=== PATIENT | female | born 1995 | race Caucasian/White ===

== ENCOUNTER 2016-09-30 18:38 | Emergency (ER) | payer MEDICAID, OTHER ==
[~2016-09-30] VITALS: Ht 154.9 cm; Wt 48.0 kg
[~2016-09-30 18:38] MED LIST: ALBU8I INH; WAL-10TA2 PO
[2016-09-30 18:39] VITALS: BP 110/55; PULSE 113; RESP 26; TEMP 98.4; O2SAT 94
[2016-09-30] MEDS ORDERED: LORA10TA PO (18:57)
[2016-09-30] MEDS ORDERED: VENTAER INH (18:57)
[2016-09-30] MEDS ORDERED: predniSONE 20 MG TAB PO ONE (19:15)
--- NOTE | 2016-09-30 19:19 | PD ---
HPI Chief Complaint: Respiratory Symptoms Time Seen by Provider: 19:10 Travel History International Travel<30 days: No Contact w/Intl Traveler<30days: No Traveled to known affect area: No History of Present Illness HPI This Is 20-year-old female with history of asthma who presents for evaluation of asthma exacerbation. Symptoms started a few hours prior to arrival. She reports wheezing and cough. She reports that she was just sitting on her couch when symptoms started. Denies recent travel, fevers or chills. No sick contacts. She does not use tobacco products. She does use an albuterol inhaler. Symptoms are partially alleviated with inhaler, aggravated by coughing. No other complaints. PFSH Past Medical History ADHD: No Asthma: Yes Autoimmune Disease: No Anxiety: No Depression: Yes Cancer: No Cardiovascular Problems: No Diabetes: No Diminished Hearing: No Endocrine: No Gastrointestinal Disorders: Yes Genitourinary: No Headaches: No Immune Disorder: No Musculoskeletal: No Neurologic: No Psychiatric: Yes (Depression) Reproductive: No Respiratory: Yes (ASTHMA) Integumentary: Yes (Eczema) Immunizations Current: Yes Migraines: No Seizures: No Thyroid Disease: No Ulcer: No ?: Not LMP: 09/10/16 : 0 Para: 0 Past Surgical History Appendectomy: No Section: No Cholecystectomy: No Other Surgery: No Social History Alcohol Use: No Tobacco Use: No Substance Use: No Allergies-Medications (Allergen,Severity, Reaction): Coded Allergies: Dust (Verified Allergy, Severe, ASTHMA ATTACK, 09/30/16) Grass (Verified Allergy, Severe, ASTHMA ATTACK, 09/30/16) Seafood (Verified Allergy, Severe, ASTHMA ATTACK, 09/30/16) Shellfish (Verified Allergy, Severe, Anaphylaxis, 09/30/16) Soy Protein (Verified Allergy, Severe, FACIAL AND LIP SWELLING, DIFFICULTY SWALLOWING, 09/30/16) Reported Meds & Prescriptions Reported Meds & Active Scripts Active Prednisone 20 Mg Tab 20 Mg PO BID 5 Days Reported Loratadine 10 Mg Tab 10 Mg PO DAILY Ventolin Hfa 18 GM Inh (Albuterol Sulfate) 90 Mcg/Act Aer 2 Puff INH Q4H PRN Review of Systems Except as stated in HPI: all other systems reviewed are Neg Physical Exam Narrative GENERAL: Well-developed well-nourished female in no acute distress. She is coughing during the examination. SKIN: Warm and dry. HEAD: Atraumatic. Normocephalic. EYES: Pupils equal and round. No scleral icterus. No injection or drainage. ENT: No nasal bleeding or discharge. Mucous membranes pink and moist. NECK: Trachea midline. No JVD. CARDIOVASCULAR: Regular rate and rhythm. No murmur appreciated. RESPIRATORY: No accessory muscle use. Inspiratory and expiratory wheezing noted bilaterally. No tachypnea. No crackles. GASTROINTESTINAL: Abdomen soft, non-tender, nondistended. Hepatic and splenic margins not palpable. MUSCULOSKELETAL: No obvious deformities. No edema. NEUROLOGICAL: Awake and alert. No obvious cranial nerve deficits. Motor grossly within normal limits. Normal speech. Data Data Last Documented VS Vital Signs Date Time Temp Pulse Resp B/P Pulse Ox O2 Delivery O2 Flow Rate FiO2 09/30/16 18:39 98.4 113 26 110/55 94 Orders Prednisone (Deltasone) (09/30/16 19:15) Albuterol-Ipratropium Neb (Duoneb Neb) (09/30/16 19:15) [facility] Medical Decision Making Medical Screen Exam Complete: Yes Emergency Medical Condition: Yes Medical Record Reviewed: Yes Differential Diagnosis Asthma exacerbation, bronchitis, pneumonia, reactive airway disease, bronchiolitis Narrative Course 20-year-old female presents for evaluation of wheezing and cough for 1 day with a history of asthma. Examination and history are consistent with asthma exacerbation. The patient is being given DuoNeb therapy and prednisone. She will be monitored closely. Upon reexamination the patient feels significantly improved. She will be discharged with a five-day course of prednisone. Diagnosis Primary Impression: Asthma with acute exacerbation Qualified Code: J45.901 - Asthma with acute exacerbation, unspecified asthma severity Additional Instructions: Medication as prescribed. Albuterol inhaler as needed for wheezing. Follow-up with primary care physician and return for any acutely new or worsening symptoms. Med/Other Pt SpecificInfo: Prescription(s) given Scripts Prednisone 20 Mg Tab20 Mg PO BID 5 Days Ref 0 Prov:Fernanda Marion MD 09/30/16 Disposition: 01 DISCHARGE HOME Condition: Stable Ray Chaney Sep 30, 2016 19:19
[2016-09-30] MEDS: RESP: ALBUTEROL 2.5 MG/IPRATROPIUM 0.5 MG NEB (SCH) INH ×3 (19:25→19:48)
[2016-09-30] MEDS ORDERED: PRED20 PO (20:01)
[2016-10-01] MEDS ORDERED: ALBU.5I NEB (12:55)
[2016-10-13] MEDS ORDERED: LORA10TA PO (17:57)
== END 2016-09-30 20:31 | disposition home or self-care (01) ==
LOC: NETRI 18:38
DX: J45.901 Unspecified asthma with (acute) exacerbation (principal)
CPT/HCPCS: 94640; 94664; 99283; J7512

== ENCOUNTER 2016-10-01 12:44 | Emergency (ER) | payer MEDICAID, OTHER ==
[~2016-10-01] VITALS: Ht 154.9 cm; Wt 47.0 kg
[~2016-10-01 12:44] MED LIST changes: -ALBU8I INH; +LORA10TA PO; +PRED20 PO; +VENTAER INH; -WAL-10TA2 PO
[2016-10-01 12:47] VITALS: BP 114/58; PULSE 136; RESP 26; O2SAT 95
[2016-10-01 12:50] VITALS: BP 114/58; PULSE 137; RESP 23; O2SAT 93
[2016-10-01] MEDS ORDERED: ALBU.5I NEB (12:55)
--- NOTE | 2016-10-01 13:06 | PD ---
HPI . Wheezing Chief Complaint: Respiratory Distress Time Seen by Provider: 12:57 Travel History International Travel<30 days: No Contact w/Intl Traveler<30days: No Traveled to known affect area: No History of Present Illness HPI Patient presents complaining with wheezing. She was seen here yesterday for same. She was treated with a nebulizer treatment and discharged with an MDI and a prescription for prednisone, 20 mg twice a day. She states that she has been using the medications as directed. Despite that, she is still wheezing today. She reports cough. She denies known fever. She has not noted any exacerbating or relieving factors. She states that her symptoms are severe. PFSH Past Medical History ADHD: No Asthma: Yes Autoimmune Disease: No Weight (Kg): 3 Anxiety: No Depression: Yes Cancer: No Cardiovascular Problems: No Diabetes: No Diminished Hearing: No Endocrine: No Gastrointestinal Disorders: Yes Genitourinary: No Headaches: No Immune Disorder: No Musculoskeletal: No Neurologic: No Psychiatric: Yes (Depression) Reproductive: No Respiratory: Yes (ASTHMA) Integumentary: Yes (Eczema) Immunizations Current: Yes Migraines: No Seizures: No Thyroid Disease: No Ulcer: No Influenza Vaccination: No ?: Not LMP: 09/10/2016 : 0 Para: 0 Past Surgical History Surgical History: No Previous Surgery Appendectomy: No Section: No Cholecystectomy: No Other Surgery: No Social History Alcohol Use: No Tobacco Use: No Substance Use: No Allergies-Medications (Allergen,Severity, Reaction): Coded Allergies: Dust (Verified Allergy, Severe, ASTHMA ATTACK, 10/01/16) Grass (Verified Allergy, Severe, ASTHMA ATTACK, 10/01/16) Seafood (Verified Allergy, Severe, ASTHMA ATTACK, 10/01/16) Shellfish (Verified Allergy, Severe, Anaphylaxis, 10/01/16) Soy Protein (Verified Allergy, Severe, FACIAL AND LIP SWELLING, DIFFICULTY SWALLOWING, 10/01/16) Reported Meds & Prescriptions Reported Meds & Active Scripts Active Prednisone 20 Mg Tab 20 Mg PO BID 5 Days Reported Albuterol Neb (Albuterol Sulfate) 2.5 Mg/0.5 Ml Neb 2.5 Mg NEB Q4-6H PRN Note: The Albuterol Sulfate Inhalation Solution is concentrated and must be diluted. Read complete instructions carefully before using. Loratadine 10 Mg Tab 10 Mg PO DAILY Ventolin Hfa 18 GM Inh (Albuterol Sulfate) 90 Mcg/Act Aer 2 Puff INH Q4H PRN Review of Systems Except as stated in HPI: all other systems reviewed are Neg General / Constitutional: No: Fever, Chills Respiratory: Positive: Cough, Shortness of Breath, Wheezing Physical Exam Narrative GENERAL: Awake and alert. SKIN: Warm and dry. HEAD: Atraumatic. Normocephalic. EYES: Pupils equal and round. Extraocular movements intact. ENT: No nasal bleeding or discharge. Mucous membranes pink and moist. NECK: Trachea midline. Neck supple. CARDIOVASCULAR: Regular rate and rhythm. Heart sounds normal. RESPIRATORY: No accessory muscle use. Diffuse inspiratory next 3 wheezing. GASTROINTESTINAL: Abdomen soft, non-tender, nondistended. MUSCULOSKELETAL: No obvious deformities. No edema. NEUROLOGICAL: Awake and alert. No obvious cranial nerve deficits. Motor grossly within normal limits. Normal speech. PSYCHIATRIC: Appropriate mood and affect; insight and judgment normal. Data Data Last Documented VS Vital Signs Date Time Temp Pulse Resp B/P Pulse Ox O2 Delivery O2 Flow Rate FiO2 10/01/16 12:50 137 23 114/58 93 Nasal Cannula 2 Orders Iv Access Insert/Monitor (10/01/16 13:01) Methylprednisolone So Succ Inj (Solumedr (10/01/16 13:15) Albuterol-Ipratropium Neb (Duoneb Neb) (10/01/16 13:15) Sodium Chloride 0.9% Flush (Ns Flush) (10/01/16 13:15) MDM Medical Decision Making Medical Screen Exam Complete: Yes Emergency Medical Condition: Yes Medical Record Reviewed: Yes (patient was seen here yesterday for wheezing. She was discharged with an albuterol MDI and a prescription for prednisone 20 mg twice a day.) Differential Diagnosis Differential diagnosis of dyspnea includes but is not limited to congestive heart failure, pneumonia, wheezing, pneumothorax, pulmonary embolism Narrative Course Patient presents for treatment of wheezing. She is currently receiving stacked nebs. I have ordered Solu-Medrol, 125 mg IV. Lungs are completely clear following treatments. She is now resting comfortably. Per dad reports that she did not get her MDI filled yet. They will get it this afternoon. Diagnosis Primary Impression: Asthma with acute exacerbation Qualified Code: J45.21 - Mild intermittent asthma with acute exacerbation Patient Instructions: Asthma (DC), General Instructions Disposition: DISCHARGE HOME Condition: Stable Abida Zambrano MD Oct 01, 2016 13:06
[2016-10-01] MEDS ORDERED: SODIUM CHLORIDE 0.9% FLUSH 10 ML FLUSH IVF PRN (13:15)
[2016-10-01] MEDS ORDERED: methylPREDNISolone SOD SUCC 125 MG/2 ML VIAL IVP ONE (13:15)
[2016-10-01] MEDS: RESP: ALBUTEROL 2.5 MG/IPRATROPIUM 0.5 MG NEB (SCH) INH ×2 (13:17→13:18)
[2016-10-01 14:35] VITALS: BP 103/51; PULSE 128; RESP 22; O2SAT 97
[2016-10-13] MEDS ORDERED: LORA10TA PO (17:57)
== END 2016-10-01 14:48 | disposition home or self-care (01) ==
LOC: NEPC 12:44
DX: J45.21 Mild intermittent asthma with (acute) exacerbation (principal)
CPT/HCPCS: 94640; 94664; 96374; 99283; J2930

== ENCOUNTER 2016-10-01 18:30 | Observation (INO) | payer MEDICAID, OTHER ==
[~2016-10-01] VITALS: Ht 157.5 cm; Wt 51.0 kg
[~2016-10-01 18:30] MED LIST changes: +ALBU.5I NEB
[2016-10-01 18:35] VITALS: BP 115/53; PULSE 128; RESP 20; TEMP 97.8; O2SAT 95
[2016-10-01] MEDS ORDERED: SODIUM CHLORIDE 0.9% FLUSH 10 ML FLUSH IVF PRN (19:00)
[2016-10-01 19:18] VITALS: RESP 20; O2SAT 99
[2016-10-01 19:19] VITALS: BP 114/59; PULSE 138; RESP 20; O2SAT 99
[2016-10-01] MEDS: RESP: ALBUTEROL 2.5 MG/IPRATROPIUM 0.5 MG NEB (SCH) INH (19:29)
[2016-10-01] MEDS ORDERED: SODIUM CHLOR 0.9% 1000 ML INJ 1,000 ML IV SCH (19:52)
--- NOTE | 2016-10-01 19:54 | RADRPT ---
EXAM DATE/TIME: 10/01/2016 19:18 [place] COMPARISON: No previous studies available for comparison. INDICATIONS : Shortness of breath, wheezing. MEDICAL HISTORY : Asthma. SURGICAL HISTORY : None. ENCOUNTER: Initial ACUITY: 3 days PAIN SCORE: 6/10 LOCATION: chest midline. FINDINGS: A single view of the chest demonstrates the lungs to be symmetrically aerated without evidence of mas s, infiltrate or effusion. The cardiomediastinal contours are unremarkable. Osseous structures are intact. CONCLUSION: 1. No acute findings. Benigno Castro MD on October 01, 2016 at 19:51 Board Certified Radiologist. This report was verified electronically.
[2016-10-01] MEDS ORDERED: OSELTAMIVIR PHOSPHATE 75 MG CAP PO ONE (20:00)
--- NOTE | 2016-10-01 20:02 | PD ---
HPI Chief Complaint: Respiratory Symptoms Time Seen by Provider: 19:57 Travel History International Travel<30 days: No Contact w/Intl Traveler<30days: No Traveled to known affect area: No History of Present Illness HPI 20-year-old female that presents to the ED for evaluation of asthma exacerbation. Patient was actually seen here at this morning by Dr. Zambrano and at the time had breathing treatments and improvement of symptoms. Patient was also seen the day before and had improvement of symptoms with breathing treatments but she continues to not improve. I spoke with the family who state that patient had another episode just before coming to the ED today minutes ago and she started having very bad shortness of breath and she was given treatments at home with minimal improvement so they brought her here back. Patient denies any other medical problems. She does have a history of asthma with intubation in the past. She does have multiple allergies to allergens. Denies any chest pain. Per patient her symptoms or shortness of breath. Most of the history is obtained from family as patient is somewhat hard to get history from secondary to her shortness of breath. She denies any fevers chills or sweats. No recent sick contacts. No fevers chills or sweats. PFSH Past Medical History ADHD: No Asthma: Yes Autoimmune Disease: No Anxiety: Yes Depression: Yes Cardiovascular Problems: No Diabetes: No Diminished Hearing: No Endocrine: No Gastrointestinal Disorders: Yes Genitourinary: No Headaches: No Immune Disorder: No Musculoskeletal: No Neurologic: No Psychiatric: Yes (Depression) Reproductive: No Respiratory: Yes (ASTHMA) Integumentary: Yes (Eczema) Immunizations Current: Yes Migraines: No Seizures: No Thyroid Disease: No Ulcer: No Tetanus Vaccination: < 5 Years Influenza Vaccination: No ?: Unknown LMP: PT STATES DOES NOT REMEMBER : 0 Para: 0 Past Surgical History Appendectomy: No Cholecystectomy: No Social History Alcohol Use: No Tobacco Use: No Substance Use: No Allergies-Medications (Allergen,Severity, Reaction): Coded Allergies: Dust (Verified Allergy, Severe, ASTHMA ATTACK, 10/01/16) Grass (Verified Allergy, Severe, ASTHMA ATTACK, 10/01/16) Seafood (Verified Allergy, Severe, ASTHMA ATTACK, 10/01/16) Shellfish (Verified Allergy, Severe, Anaphylaxis, 10/01/16) Soy Protein (Verified Allergy, Severe, FACIAL AND LIP SWELLING, DIFFICULTY SWALLOWING, 10/01/16) Reported Meds & Prescriptions Reported Meds & Active Scripts Active Prednisone 20 Mg Tab 20 Mg PO BID 5 Days Reported Albuterol Neb (Albuterol Sulfate) 2.5 Mg/0.5 Ml Neb 2.5 Mg NEB Q4-6H PRN Note: The Albuterol Sulfate Inhalation Solution is concentrated and must be diluted. Read complete instructions carefully before using. Loratadine 10 Mg Tab 10 Mg PO DAILY Ventolin Hfa 18 GM Inh (Albuterol Sulfate) 90 Mcg/Act Aer 2 Puff INH Q4H PRN Review of Systems Except as stated in HPI: all other systems reviewed are Neg Physical Exam Narrative GENERAL: Well-nourished, well-developed patient in no apparent distress. SKIN: Warm and dry. HEAD: Atraumatic. Normocephalic. EYES: Pupils equal and round reactive to light and accommodation. No scleral icterus. No injection or drainage. ENT: No nasal bleeding or discharge. Mucous membranes pink and moist. TMs are clear with no sign of infection or perforation. No mastoid tenderness. Ear canals are intact bilaterally. No lymphadenopathy. Nostril mucosa is red and moist with clear mucus noted. No sinus tenderness to palpation noted. Tonsils are not enlarged or swollen. No ulvua Deviation. Tongue is midline. NECK: Trachea midline. No JVD. No meningeal signs noted CARDIOVASCULAR: Regular rate and rhythm. RESPIRATORY: No accessory muscle use. Wheezings heard in all lung taylor. Breath sounds equal bilaterally. GASTROINTESTINAL: Abdomen soft, non-tender, nondistended. Hepatic and splenic margins not palpable. MUSCULOSKELETAL: Extremities without clubbing, cyanosis, or edema. No obvious deformities. NEUROLOGICAL: Awake and alert. No obvious cranial nerve deficits. Motor grossly within normal limits. Five out of 5 muscle strength in the arms and legs. Normal speech. PSYCHIATRIC: Appropriate mood and affect; insight and judgment normal. Data Data Last Documented VS Vital Signs Date Time Temp Pulse Resp B/P Pulse Ox O2 Delivery O2 Flow Rate FiO2 10/01/16 19:19 138 20 114/59 99 Nasal Cannula 1 10/01/16 18:35 97.8 Orders Chest, Single Ap (10/01/16 18:58) Ecg Monitoring (10/01/16 18:58) Iv Access Insert/Monitor (10/01/16 18:58) Oximetry (10/01/16 18:58) Oxygen Administration (10/01/16 18:58) Albuterol-Ipratropium Neb (Duoneb Neb) (10/01/16 19:00) Sodium Chloride 0.9% Flush (Ns Flush) (10/01/16 19:00) Influenzae A/B Antigen (10/01/16 19:00) Oseltamivir (Tamiflu) (10/01/16 20:00) Sodium Chlor 0.9% 1000 Ml Inj (Ns 1000 M (10/01/16 19:52) Magnesium Sulfate 1 Gm Premix (Magnesium (10/01/16 20:00) Electrocardiogram (10/01/16 ) MDM Medical Decision Making Medical Screen Exam Complete: Yes Emergency Medical Condition: Yes Medical Record Reviewed: Yes Interpretation(s) flu positive for A CXR negative Differential Diagnosis Asthma exacerbation versus asthma versus influenza versus pneumonia Narrative Course 20-year-old female that presents to the ED for evaluation of shortness of breath. Patient was properly examined and was found to have signs and symptoms very consistent what appears to be asthma exacerbation. This is the patient's third evaluation for this in less than 48 hours. Patient still very symptomatic having a lot of wheezing on exam. Patient has had no x-rays or any other work done. At this time I recommend chest x-ray as well as influenza test to make sure patient doesn't have an infectious etiology causing the severe attacks. Chest x-ray and influenza test became positive for flu no pneumonia. Patient was given 3 duo nebs with some improvement of the wheezing. I spoke with my attending Dr. Villanueva who recommends starting her on magnesium as well. At this time I will start patient on Tamiflu. Because this is the patient's third time coming to the ED for the same complaint to do recommend admission for observation and better asthma control. This was discussed in my attending Dr. Villanueva who agrees with plan. HEPAS was paged. Spoke with Dr. Reddy who agrees to admission. Diagnosis Primary Impression: Asthma with acute exacerbation Qualified Code: J45.41 - Moderate persistent asthma with acute exacerbation Additional Impression: Influenza A Admitting Information Admitting Physician Requests: Observation Jude Herman Oct 01, 2016 20:02
[2016-10-01] MEDS ORDERED: SODIUM CHLOR 0.9% 1000 ML INJ 1,000 ML IV ONE (20:15)
[2016-10-01] MEDS ORDERED: RESP: ALBUTEROL 1.25 MG/3 ML NEB (PRN) NEB (20:15)
[2016-10-01 20:41] VITALS: BP 102/54; PULSE 143; RESP 18; TEMP 100.2; TEMP 98.4; O2SAT 99
[2016-10-01] MEDS: MAGNESIUM SULFATE 1 GM PREMIX 100 ML IV SCH ×2 (20:44→21:31)
[2016-10-01] MEDS ORDERED: ACETAMINOPHEN 325 MG TAB PO ONE (22:00)
[2016-10-01 22:11] VITALS: BP 103/69; TEMP 100.2
--- NOTE | 2016-10-01 22:17 | HHI.HP ---
[facility] Primary Care Physician Eleazar Santamaria MD Admission Diagnosis asthma with acute exacerbation, failed outpatient treatment, flu Diagnoses: (1) Influenza A Diagnosis: Principal Chief Complaint: sob Travel History International Travel<30 Days: No Contact w/Intl Traveler <30 Da: No Traveled to Known Affected Are: No History of Present Illness patient is a 20 y/o female with history of asthma who presented to ER with sob. this is her third presentation to ER over the past couple of days. she says that she started to have sob a few days ago which gradually got worse. she has dry cough and doesn't report any fevers at home. she was seen in ER yesterday and was discharged with prednisone. she came [place] to ER earlier today, received a dose of IV steroid and was discharged home again. she says that her sob didn' t improve which made her to come to ER again. at the time of my evaluation she was in no acute distress although still with some chest congestion. she says that she works in a [employer] center. Review of Systems Constitutional: DENIES: Fever, Weight loss, Chills, Night Sweats Eyes: DENIES: Blurred vision, Diplopia, Vision loss, Double Vision Ears, nose, mouth, throat: DENIES: Tinnitus, Vertigo, Throat pain, Epistaxis Respiratory: COMPLAINS OF: Cough, Shortness of breath, DENIES: Apneas, Snoring , Wheezing, Hemoptysis, Sputum production Cardiovascular: DENIES: Chest pain, Palpitations, Syncope, Dyspnea on Exertion , PND, Lower Extremity Edema, Orthopnea, Claudication Gastrointestinal: DENIES: Abdominal pain, Black stools, Bloody stools, Constipation, Diarrhea, Nausea, Vomiting, Difficulty Swallowing, Anorexia Genitourinary: DENIES: Urinary frequency, Urgency, Hematuria, Dysuria Musculoskeletal: DENIES: Joint pain, Muscle aches, Stiffness, Joint Swelling Integumentary: DENIES: Rash Neurologic: DENIES: Abnormal gait, Headache, Localized weakness, Paresthesias, Seizures, Speech Problems, Tremor, Poor Balance Psychiatric: DENIES: Anxiety, Confusion, Mood changes, Depression, Hallucinations, Agitation, Suicidal Ideation, Homicidal Ideation, Delusions Past Family Social History Past Medical History asthma Past Surgical History none Reported Medications Prednisone 20 Mg Tab 20 Mg PO BID 5 Days Albuterol Neb (Albuterol Sulfate) 2.5 Mg/0.5 Ml Neb 2.5 Mg NEB Q4-6H PRN Note: The Albuterol Sulfate Inhalation Solution is concentrated and must be diluted. Read complete instructions carefully before using. Loratadine 10 Mg Tab 10 Mg PO DAILY Ventolin Hfa 18 GM Inh (Albuterol Sulfate) 90 Mcg/Act Aer 2 Puff INH Q4H PRN Allergies: Coded Allergies: Dust (Verified Allergy, Severe, ASTHMA ATTACK, 10/01/16) Grass (Verified Allergy, Severe, ASTHMA ATTACK, 10/01/16) Seafood (Verified Allergy, Severe, ASTHMA ATTACK, 10/01/16) Shellfish (Verified Allergy, Severe, Anaphylaxis, 10/01/16) Soy Protein (Verified Allergy, Severe, FACIAL AND LIP SWELLING, DIFFICULTY SWALLOWING, 10/01/16) Active Ordered Medications Current Medications Albuterol/ Ipratropium (Duoneb Neb) 1 ampule Q15M INH Last administered on 19:29; Start 10/01/16 at 19:00; Stop 10/01/16 at 19:31; Status DC Sodium Chloride (NS Flush) 2 ml UNSCH PRN IVF FLUSH AFTER USING IV ACCESS; Start 10/01/16 at 19:00 Oseltamivir Phosphate 75 mg 75 mg ONCE ONCE PO Last administered on 10/01/16 22:01; Start 10/01/16 at 20:00; Stop 10/01/16 at 20:01; Status DC Sodium Chloride 1,000 ml @ 1,000 mls/hr Q1H IV Last administered on 10/01/16 20:44; Start 10/01/16 at 19:52; Stop 10/01/16 at 20:51; Status DC Magnesium Sulfate/ Dextrose (Magnesium Sulfate 1 Gm Premix) 100 ml @ 100 mls/ hr Q1H IV Last administered on 10/01/16 21:31; Start 10/01/16 at 20:00; Stop 10/01/16 at 21:59; Status DC Albuterol Sulfate (Albuterol Neb) 2.5 mg Q4HR NEB NEB ; Start 10/02/16 at 00:00 Albuterol Sulfate (Albuterol Neb) 1.25 mg Q2HR NEB PRN NEB SHORTNESS OF BREATH ; Start 10/01/16 at 20:15 Oseltamivir Phosphate 75 mg 75 mg BID PO ; Start 10/02/16 at 09:00 Sodium Chloride (NS 1000 ml Inj) 1,000 ml @ 100 mls/hr Q10H ONCE IV Last administered on 10/01/16 21:32; Start 10/01/16 at 20:15; Stop 10/02/16 at 06:14 Loratadine (Claritin) 10 mg DAILY PO ; Start 10/02/16 at 09:00 Acetaminophen (Tylenol) 650 mg ONCE ONCE PO Last administered on 10/01/16 22: 01; Start 10/01/16 at 22:00; Stop 10/01/16 at 22:01; Status DC Social History no smoking or drinking. Physical Exam Vital Signs Vital Signs Date Time Temp Pulse Resp B/P Pulse Ox O2 Delivery O2 Flow Rate FiO2 10/01/16 20:41 100.2 143 18 102/54 99 Nasal Cannula 1 10/01/16 19:19 138 20 114/59 99 Nasal Cannula 1 10/01/16 19:18 99 Nasal Cannula 1 10/01/16 19:18 20 99 Nasal Cannula 1 10/01/16 18:35 118 20 96 Room Air 10/01/16 18:35 97.8 128 20 115/53 95 Physical Exam GENERAL: This is a well-nourished, well-developed patient, in no apparent distress. SKIN: No rashes, ecchymoses or lesions. Cool and dry. HEAD: Atraumatic. Normocephalic. No temporal or scalp tenderness. EYES: Pupils equal round and reactive. Extraocular motions intact. No scleral icterus. No injection or drainage. ENT: Nose without bleeding, purulent drainage or septal hematoma. Throat without erythema, tonsillar hypertrophy or exudate. Uvula midline. Airway patent. NECK: Trachea midline. No JVD or lymphadenopathy. Supple, nontender, no meningeal signs. CARDIOVASCULAR: Regular rate and rhythm without murmurs, gallops, or rubs. RESPIRATORY: bilateral wheezing GASTROINTESTINAL: Abdomen soft, non-tender, nondistended. No hepato-splenomegaly , or palpable masses. No guarding. MUSCULOSKELETAL: Extremities without clubbing, cyanosis, or edema. No joint tenderness, effusion, or edema noted. No calf tenderness. Negative Homans sign bilaterally. NEUROLOGICAL: Awake and alert. Cranial nerves II through XII intact. Motor and sensory grossly within normal limits. Five out of 5 muscle strength in all muscle groups. Normal speech. Laboratory Date/Time Procedure Status Source Growth 10/01/16 19:10 Influenza Types A,B Antigen (LEO) - Final Complete Nasal Washing Positive For Flu A Antigen Imaging Last Impressions Chest X-Ray 10/01/16 8155 Signed Impressions: Service Date/Time: Saturday, October 01, 2016 19:18 - CONCLUSION: 1. No acute findings. Benigno Castro MD EKG; sinus tachycardia Assessment and Plan Assessment and Plan A/P - flu with asthma exacerbation continue with neb treatment- received a dose of Solumedrol earlier today- will continue with IV steroids- started on Tamiflu keep on oxygen to keep O2 sat > 90%. will monitor the temps. Discussed Condition With ER and the patient. Jesus Guerrero MD Oct 01, 2016 22:17
[2016-10-01 22:24] VITALS: BP 101/58; PULSE 131; RESP 19; RESP 20; TEMP 99.5; O2SAT 98
[2016-10-01] MEDS ORDERED: ACETAMINOPHEN 325 MG TAB PO PRN (22:30)
[2016-10-01] MEDS: methylPREDNISolone SOD SUCC 40 MG/1 ML VIAL IV PUSH SCH (23:28)
[2016-10-02] VITALS (7 sets, daily range): BP systolic 100–116; BP diastolic 50–63; PULSE 74–110; RESP 17–19; TEMP 98.1–99.1; O2SAT 96–100
[2016-10-02] MEDS: RESP: ALBUTEROL 2.5 MG/3 ML NEB (SCH) NEB ×2 (02:47)
[2016-10-02] MEDS: methylPREDNISolone SOD SUCC 40 MG/1 ML VIAL IV PUSH SCH ×2 (05:22→21:05)
[2016-10-02 08:02] LABS: BASOPHIL % 0.1 % (0.0-2.0); HEMATOCRIT 33.3 % (35.0-46.0); HEMO FLAGS DIFF FINAL; LYMPH % 6.1 % (9.0-44.0); LYMPHOCYTE # 0.5 TH/MM3 (1.0-4.8); MEAN CELL VOLUME 81.5 FL (80.0-100.0); MEAN CORPUSCULAR HGB CONC 33.1 % (32.0-36.0); MONO % 3.1 % (0.0-8.0); NEUT % 90.7 % (16.0-70.0); PLATELET COUNT 241 TH/MM3 (150-450); RED BLOOD COUNT 4.08 MIL/MM3 (4.00-5.30); RED CELL DISTRIBUTION WIDTH 15.3 % (11.6-17.2); WHITE BLOOD COUNT 7.7 TH/MM3 (4.0-11.0)
[2016-10-02 08:18] LABS: BICARBONATE 20.3 MEQ/L (21.0-32.0); POTASSIUM 4.2 MEQ/L (3.5-5.1)
[2016-10-02] MEDS: OSELTAMIVIR PHOSPHATE 75 MG CAP PO SCH ×2 (08:43→21:05)
[2016-10-02] MEDS: LORATADINE 10 MG TAB PO SCH (08:43)
[2016-10-02] MEDS: RESP: IPRATROPIUM 0.5 MG/2.5 ML NEB NEB SCH ×3 (08:57→20:05)
[2016-10-02] MEDS ORDERED: ACETAMINOPHEN 325 MG TAB PO PRN (11:45)
[2016-10-02] MEDS ORDERED: ONDANSETRON HCL 4 MG/2 ML VIAL IVP PRN (11:45)
[2016-10-02] MEDS ORDERED: SODIUM CHLORIDE 0.9% FLUSH 10 ML FLUSH IV FLUSH PRN (11:45)
[2016-10-02] MEDS ORDERED: NALOXONE HCL 0.4 MG/ML AMP IV PRN (11:45)
[2016-10-02] MEDS ORDERED: MAGNESIUM HYDROXIDE SUSP 30 ML CUP PO PRN (11:45)
--- NOTE | 2016-10-02 12:22 | HHI.PR ---
Subjective Remarks Follow-up for asthma exacerbation and influenza. The patient states that she normally has a few asthma attacks per month, but they are mild and usually relieved after one puff of albuterol MDI. Yesterday however she had multiple asthma attacks. She states that for the first episode she came to the ED, was given oral steroids and breathing treatment and felt much better. She had another attack later in the day and came to the ED and received IV steroids. She began having worsening wheezing, cough, and body aches, so she went back to the ED for a third time and was diagnosed with influenza. She denies any fever or chills. Her breathing is much better today. Objective Vitals Vital Signs Date Time Temp Pulse Resp B/P Pulse Ox O2 Delivery O2 Flow Rate FiO2 10/02/16 08:57 98 Nasal Cannula 2.00 10/02/16 08:32 99.1 86 17 105/56 98 10/02/16 04:26 98.6 110 19 100/55 100 10/01/16 22:24 99.5 131 19 101/58 98 10/01/16 22:11 100.2 126 18 103/69 99 Nasal Cannula 1 10/01/16 20:41 100.2 143 18 102/54 99 Nasal Cannula 1 10/01/16 19:19 138 20 114/59 99 Nasal Cannula 1 10/01/16 19:18 99 Nasal Cannula 1 10/01/16 19:18 20 99 Nasal Cannula 1 10/01/16 18:35 118 20 96 Room Air 10/01/16 18:35 97.8 128 20 115/53 95 Result Diagram: 10/02/16 0750 10/02/16 0750 Imaging Last Impressions Chest X-Ray 10/01/16 3778 Signed Impressions: Service Date/Time: Saturday, October 01, 2016 19:18 - CONCLUSION: 1. No acute findings. Benigno Castro MD Objective Remarks GENERAL: Well-developed well-nourished. In no acute distress. SKIN: Warm and dry. No lesions noted. HEENT: Normocephalic. Pupils equal and round. Mucous membranes pink and moist. CARDIOVASCULAR: Regular rate and rhythm. No murmur appreciated. RESPIRATORY: No accessory muscle use. Clear to auscultation. Breath sounds equal bilaterally. No wheezing. GASTROINTESTINAL: Abdomen soft, non-tender, nondistended. Bowel sounds x4. MUSCULOSKELETAL: No obvious deformities. No clubbing or cyanosis. No edema. NEUROLOGICAL: Awake and alert. No focal neurological deficits. Moves upper and lower extremities spontaneously. Normal speech. PSYCHIATRIC: Appropriate mood and affect; insight and judgment normal. A/P Problem List: (1) Influenza A ICD Code: J10.1 Status: Acute Assessment and Plan 20-year-old female with a past medical history of asthma who presented with shortness of breath Asthma exacerbation Influenza infection Reviewed: Chest x-ray with no acute findings. No leukocytosis. Tmax 100.2. -IV steroids, taper -Tamiflu -Scheduled and as needed nebs -IVF 1 bag DVT prophylaxis: SCDs Written by Jignesh Dorsey, acting as scribe for Dr. Tam on 10/02/16 at 12:22. All or portions of this note were transcribed by scrALONDRA Paredes. I, Dr. Artis Tam personally performed the history, physical exam, and medical decision making; and confirmed the accuracy of the information in the transcribed note. Authenticated by Dr. Artis Tam on 10/02/16 at 23:40. Discharge Planning Likely discharge tomorrow if patient remains stable. Jignesh Dorsey Oct 02, 2016 12:22 Samia Tam DO Oct 02, 2016 23:40
--- NOTE | 2016-10-02 12:55 | EKG ---
Date Performed: 10/01/2016 Time Performed: 20:39:29 PTAGE: 20 years EKG: SINUS TACHYCARDIA WITH SHORT MO INTERVAL POSSIBLE RIGHT VENTRICULAR CONDUCTION DELAY NONSPE CIFIC ST & T-WAVE ABNORMALITY ABNORMAL RHYTHM ECG PREVIOUS TRACING : 12/10/2012 10.29 Compared to the previous tracing sinus tachycardia is new DOCTOR: Flaco Stein Interpretating Date/Time 10/02/2016 12:53:58
[2016-10-02] MEDS: SODIUM CHLORIDE 0.9% FLUSH 10 ML FLUSH IV FLUSH SCH (21:05)
[2016-10-03 00:19] VITALS: BP 112/62; PULSE 75; RESP 19; TEMP 98.1; O2SAT 97
[2016-10-03] MEDS: RESP: IPRATROPIUM 0.5 MG/2.5 ML NEB NEB SCH ×2 (03:05→08:27)
[2016-10-03 04:35] VITALS: BP 110/62; PULSE 79; RESP 18; TEMP 98.2; O2SAT 95
[2016-10-03 08:00] VITALS: BP 95/52; PULSE 65; RESP 16; TEMP 98.5; O2SAT 100
[2016-10-03] MEDS ORDERED: OSEL75 PO (08:00)
--- NOTE | 2016-10-03 08:16 | HHI.PR ---
Subjective Remarks Follow up for influenza and asthma exacerbation. The patient reports feeling better today. O2 sat stable on room air. No fevers or chills. She states she uses her inhaler maybe 3x a week at night. Denies any frequent severe exacerbations or hospitalizations. Objective Vitals Vital Signs Date Time Temp Pulse Resp B/P Pulse Ox O2 Delivery O2 Flow Rate FiO2 10/03/16 04:35 98.2 79 18 110/62 95 10/03/16 00:19 98.1 75 19 112/62 97 10/02/16 20:33 98.1 74 19 116/63 96 10/02/16 20:10 99 10/02/16 15:58 98.9 97 18 108/50 98 10/02/16 12:15 99.0 95 19 108/51 98 10/02/16 08:57 98 Nasal Cannula 2.00 10/02/16 08:32 99.1 86 17 105/56 98 Result Diagram: 10/02/16 0750 10/02/16 0750 Imaging Last Impressions Chest X-Ray 10/01/16 [id number] Signed Impressions: Service Date/Time: Saturday, October 01, 2016 19:18 - CONCLUSION: 1. No acute findings. Benigno Castro MD Objective Remarks GENERAL: Well- developed well-nourished young female patient in [facility]. SKIN: Warm and dry. HEENT: Atraumatic. Normocephalic. Pupils equal and round. No scleral icterus. No injection or drainage. Mucous membranes pink and moist. NECK: Trachea midline. No JVD. CARDIOVASCULAR: Regular rate and rhythm. No murmur appreciated. RESPIRATORY: No accessory muscle use. Clear to auscultation. Breath sounds equal bilaterally. GASTROINTESTINAL: Abdomen soft, non-tender, nondistended. Hepatic and splenic margins not palpable. MUSCULOSKELETAL: Extremities without clubbing, cyanosis, or edema. No obvious deformities. NEUROLOGICAL: Awake and alert. No obvious cranial nerve deficits. Motor grossly within normal limits. Normal speech. PSYCHIATRIC: Appropriate mood and affect; insight and judgment normal. Medications and IVs Current Medications Medications (Trade) Dose Ordered Sig/Patrick Route Start Time Stop Time Status Last Admin (Tamiflu) 75 mg BID PO 10/02/16 09:00 10/02/16 21:05 (Claritin) 10 mg DAILY PO 10/02/16 09:00 10/02/16 08:43 (NS Flush) 2 ml UNSCH PRN IV FLUSH 10/02/16 11:45 (NS Flush) 2 ml BID IV FLUSH 10/02/16 21:00 10/02/16 21:05 (Tylenol) 650 mg Q4H PRN PO 10/02/16 11:45 (Zofran Inj) 4 mg Q6H PRN IVP 10/02/16 11:45 (Milk Of Magnesia Liq) 30 ml Q12H PRN PO 10/02/16 11:45 (Narcan Inj) 0.4 mg UNSCH PRN IV 10/02/16 11:45 (SoluMEDROL INJ) 40 mg Q12HR IV PUSH 10/02/16 21:00 10/02/16 21:05 Urinary Catheter: No Vascular Central Line Catheter: No A/P Problem List: (1) Influenza A ICD Code: J10.1 Status: Acute Assessment and Plan 20-year-old female with a past medical history of asthma who presented with shortness of breath Asthma exacerbation Influenza infection Reviewed: Chest x-ray with no acute findings. No leukocytosis. Tmax 100.2. -IV steroids, taper -Tamiflu 75mg po bid x5days total -Scheduled and as needed nebs -IVF 1 bag DVT prophylaxis: SCDs Written by Alejandra Ragland, acting as scribe for Dr. Tam on 10/03/16 at 08:15. Discharge Planning Discharge patient to home Condition on discharge: Improved Regular Diet as tolerated Ad Kati activity Rx written: Duran, pt already has prescription for prednisone and albuterol inhaler from prior visit Follow-up with primary care physician within 1 week Alejandra Ragland PA-C Oct 03, 2016 8:16 am
--- NOTE | 2016-10-03 08:18 | HHI.DCPOC ---
Discharge Care Plan Diagnosis: (1) Influenza A (2) Asthma with acute exacerbation Goals to Promote Your Health * To prevent worsening of your condition and complications * To maintain your health at the optimal level Directions to Meet Your Goals Take your medications as prescribed Follow your dietary instruction Follow activity as directed Keep your appointments as scheduled Take your immunizations and boosters as scheduled If your symptoms worsen call your PCP, if no PCP go to Urgent Care Center or Emergency Room Smoking is Dangerous to Your Health. Avoid second hand smoke Call the 24-hour hour crisis hotline for domestic abuse at Alejandra Ragland PA-C Oct 03, 2016 8:18 am
[2016-10-03 08:29] VITALS: O2SAT 95
[2016-10-03] MEDS: OSELTAMIVIR PHOSPHATE 75 MG CAP PO SCH (10:14)
[2016-10-03] MEDS: methylPREDNISolone SOD SUCC 40 MG/1 ML VIAL IV PUSH SCH (10:14)
[2016-10-03] MEDS: LORATADINE 10 MG TAB PO SCH (10:14)
[2016-10-03] MEDS: SODIUM CHLORIDE 0.9% FLUSH 10 ML FLUSH IV FLUSH SCH (10:16)
--- NOTE | 2016-10-06 09:00 | PD ---
Data Data Orders Chest, Single Ap (10/01/16 18:58) Ecg Monitoring (10/01/16 18:58) Iv Access Insert/Monitor (10/01/16 18:58) Oximetry (10/01/16 18:58) Oxygen Administration (10/01/16 18:58) Albuterol-Ipratropium Neb (Duoneb Neb) (10/01/16 19:00) Sodium Chloride 0.9% Flush (Ns Flush) (10/01/16 19:00) Influenzae A/B Antigen (10/01/16 19:00) Oseltamivir (Tamiflu) (10/01/16 20:00) Sodium Chlor 0.9% 1000 Ml Inj (Ns 1000 M (10/01/16 19:52) Magnesium Sulfate 1 Gm Premix (Magnesium (10/01/16 20:00) Electrocardiogram (10/01/16 ) Admit Order (Ed Use Only) (10/01/16 20:10) Diet Regular Basic (10/02/16 Breakfast) Vital Signs (Adult) VICTORIA.Q4H (10/01/16 20:10) Resp Oxygen [place] C Titrat 1-4 L (10/01/16 ) Albuterol Neb (Albuterol Neb) (10/02/16 00:00) Albuterol Neb (Albuterol Neb) (10/01/16 20:15) Oseltamivir (Tamiflu) (10/02/16 09:00) Sodium Chlor 0.9% 1000 Ml Inj (Ns 1000 M (10/01/16 20:15) Complete Blood Count With Diff (10/01/16 20:10) Basic Metabolic Panel (Bmp) (10/01/16 20:10) Loratadine (Claritin) (10/02/16 09:00) MDM Supervised Visit with JOSE ANTONIO: Yes Narrative Course Patient seen and examined by me, has decreased BS with inspiratory and expiratory wheezing. Tachycardia after treatments to 150's. EKG obtained shows sinus tachycardia no ischemia. Patient tachycardia is slowly resolving with time. She states feeling better. Discussed admission and she is agreeable. Overall improving in ED. Diagnosis Primary Impression: Asthma with acute exacerbation Qualified Code: J45.41 - Moderate persistent asthma with acute exacerbation Additional Impression: Influenza A Admitting Information Admitting Physician Requests: Observation Patient Instructions: Oseltamivir (By mouth), Asthma (DC), Influenza (DC) Scripts Oseltamivir (Tamiflu)75 Mg Cap75 Mg PO BID #6 CAP Prov:Alejandra Ragland PA-C 10/03/16 Condition: Chris Elkins MD Oct 06, 2016 09:00
[2016-10-13] MEDS ORDERED: LORA10TA PO (17:57)
== END 2016-10-03 10:59 | disposition home or self-care (01) ==
LOC: NEPC 18:30 → NEDA 20:13 → NEPHCDU 22:23
PROVIDERS: ADMIT Hospitalist; ATTEND Hospitalist
DX: J10.1 Influenza due to other identified influenza virus with other respiratory manifestations (principal); J45.901 Unspecified asthma with (acute) exacerbation; F41.9 Anxiety disorder, unspecified; F32.9 Major depressive disorder, single episode, unspecified; Z79.51 Long term (current) use of inhaled steroids; Z91.013 Allergy to seafood; Z91.018 Allergy to other foods; Z91.048 Other nonmedicinal substance allergy status
CPT/HCPCS: 71010; 80048; 85025; 87804; 93005; 94640; 94664; 94799; 99285; G0378; J2920; J3475; J7030; J7613; J7644

== ENCOUNTER 2016-11-08 11:23 | Emergency (ER) | payer SELFPAY ==
[~2016-11-08] VITALS: Ht 154.9 cm; Wt 50.0 kg
[~2016-11-08 11:23] MED LIST changes: +OSEL75 PO
[2016-11-08 11:31] VITALS: BP 135/90; PULSE 98; RESP 19; TEMP 98.4; O2SAT 99
--- NOTE | 2016-11-08 11:35 | PD ---
HPI . sore throat, runny nose, congestion, head pressure x 2 days Chief Complaint: Cold / Flu Symptoms Time Seen by Provider: 11:32 Travel History International Travel<30 days: No Contact w/Intl Traveler<30days: No Traveled to known affect area: No History of Present Illness HPI 20-year-old female with history of allergies and asthma here with complaints of sore throat, rhinorrhea, chills, congestion and head pressure for the past 2 days. Patient admits that she may have had some chills, but denies any fevers. She said she felt nauseous at times, but did not vomit. She denies any chance of . She is currently on her menstrual cycle. She has no other complaints. [facility] Past Medical History ADHD: No Asthma: Yes Autoimmune Disease: No Anxiety: Yes Depression: Yes Heart Rhythm Problems: No Cardiovascular Problems: No High Cholesterol: No Chest Pain: No Congestive Heart Failure: No Diabetes: No Diminished Hearing: No Endocrine: No Gastrointestinal Disorders: Yes Genitourinary: No Headaches: No Immune Disorder: No Musculoskeletal: No Neurologic: Yes Psychiatric: Yes (Depression) Reproductive: No Respiratory: Yes (ASTHMA) Integumentary: Yes (Eczema) Immunizations Current: Yes Migraines: No Seizures: No Thyroid Disease: No Ulcer: No ?: Not LMP: 11/08/16 : 0 Para: 0 Past Surgical History Appendectomy: No Cholecystectomy: No Social History Alcohol Use: No Tobacco Use: No Substance Use: No Allergies-Medications (Allergen,Severity, Reaction): Coded Allergies: Dust (Verified Allergy, Severe, ASTHMA ATTACK, 10/01/16) Grass (Verified Allergy, Severe, ASTHMA ATTACK, 10/01/16) Seafood (Verified Allergy, Severe, ASTHMA ATTACK, 10/01/16) Shellfish (Verified Allergy, Severe, Anaphylaxis, 10/01/16) Soy Protein (Verified Allergy, Severe, FACIAL AND LIP SWELLING, DIFFICULTY SWALLOWING, 10/01/16) Reported Meds & Prescriptions Reported Meds & Active Scripts Active Flonase Nasal [place] (Fluticasone Nasal [place]) 50 Mcg/Act [place] 50 Mcg EACH NARE BID Augmentin (Amoxicillin-Clavulanate) 875-125 mg Tab 875 Mg PO BID not for use in CrCl <30 ml/min. Loratadine 10 Mg Tab 10 Mg PO HS Tamiflu (Oseltamivir Phosphate) 75 Mg Cap 75 Mg PO BID Prednisone 20 Mg Tab 20 Mg PO BID 5 Days Reported Albuterol Neb (Albuterol Sulfate) 2.5 Mg/0.5 Ml Neb 2.5 Mg NEB Q4-6H PRN Note: The Albuterol Sulfate Inhalation Solution is concentrated and must be diluted. Read complete instructions carefully before using. Ventolin Hfa 18 GM Inh (Albuterol Sulfate) 90 Mcg/Act Aer 2 Puff INH Q4H PRN Review of Systems General / Constitutional: Positive: Chills, No: Fever Eyes: No: Visual changes HENT: Positive: Sore Throat, Rhinorrhea, Congestion, No: Headaches Cardiovascular: No: Chest Pain or Discomfort Respiratory: No: Shortness of Breath Gastrointestinal: Positive: Nausea, No: Vomiting, Diarrhea, Abdominal Pain Genitourinary: No: Dysuria Musculoskeletal: No: Pain Skin: No Rash Neurologic: No: Weakness Psychiatric: No: Depression Endocrine: No: Polydipsia Hematologic/Lymphatic: No: Easy Bruising Physical Exam Narrative GENERAL: AAO x 3, no acute distress, Well-nourished, well-developed patient. SKIN: Warm and dry. No visible rashes or bruising. HEAD: Normocephalic and atraumatic. EYES: No scleral icterus. No injection or drainage. EOM intact, PERRLA ENT: No nasal drainage noted. Mucous membranes pink. Airway patent. Mild posterior pharynx erythema with moderate postnasal drip. TMs with air bubbles bilaterally. Frontal and maxillary sinus tenderness on palpation. NECK: Supple, trachea midline. No JVD. Mild cervical chain lymphadenopathy CARDIOVASCULAR: Regular rate and rhythm without murmurs, gallops, or rubs. RESPIRATORY: Breath sounds equal bilaterally. No accessory muscle use. No rhonchi or rales. GASTROINTESTINAL: Abdomen soft, non-tender, nondistended. EXTREMITIES: No cyanosis or edema. BACK: Nontender without obvious deformity. No CVA tenderness. PSYCH: AAO x 3, normal affect. Data Data Last Documented VS Vital Signs Date Time Temp Pulse Resp B/P Pulse Ox O2 Delivery O2 Flow Rate FiO2 11/08/16 11:39 Room Air 11/08/16 11:31 98.4 98 19 135/90 99 MDM Medical Decision Making Medical Screen Exam Complete: Yes Emergency Medical Condition: Yes Medical Record Reviewed: Yes Differential Diagnosis sinusitis, viral syndrome, less likely influenza Narrative Course 20-year-old female with history of allergies and asthma here with complaints of sore throat, rhinorrhea, chills, congestion and head pressure for the past 2 days. Patient admits that she may have had some chills, but denies any fevers. She said she felt nauseous at times, but did not vomit. She denies any chance of . She is currently on her menstrual cycle. She has no other complaints. Patient seen and examined. She appears to have an acute sinusitis. I do not suspect influenza or pneumonia. She can also have an underlying viral syndrome. I will go ahead and treat her with Augmentin to cover for sinusitis. I also gave her some Flonase as she has a history of allergic rhinitis, which is likely contributing to her issues. recommend staying hydrated. Patient verbalized understanding of instructions, questions were answered, and thanked me for their care. I advised them if their condition worsens, please return to the nearest emergency room for further care. Diagnosis Primary Impression: Acute sinusitis Qualified Code: J01.00 - Acute maxillary sinusitis, recurrence not specified Additional Impression: Viral syndrome Patient Instructions: General Instructions, Sinusitis (ED) Departure Forms: Tests/Procedures, Work Release Enter return to work date: November 09, 2016 Additional Instructions: Please return to emergency department if your symptoms return or worsen. Follow up with your primary care provider. Take medications as prescribed. Med/Other Pt SpecificInfo: Prescription(s) given Scripts Fluticasone Nasal [place] (Flonase Nasal [place])50 Mcg/Act Spray50 Mcg EACH NARE BID #1 BOTTLE Ref 0 Prov:Amalia Cyr MD 11/08/16 Amoxicillin-Clavulanate (Augmentin)875-125 mg [id number] Mg PO BID #20 TAB not for use in CrCl <30 ml/min. Prov:Amalia Cyr MD 11/08/16 Disposition: 01 DISCHARGE HOME Condition: Stable Marti Anderson November 08, 2016 11:35
[2016-11-08] MEDS ORDERED: AUGM875T PO (11:36)
[2016-11-08] MEDS ORDERED: FLUT1SPR5 EACH NARE (11:36)
== END 2016-11-08 11:54 | disposition home or self-care (01) ==
LOC: NEPK 11:23
DX: J01.90 Acute sinusitis, unspecified (principal); B34.9 Viral infection, unspecified
CPT/HCPCS: 99283

== ENCOUNTER 2016-11-09 11:47 | Emergency (ER) | payer SELFPAY ==
[~2016-11-09] VITALS: Ht 154.9 cm; Wt 50.0 kg
[~2016-11-09 11:47] MED LIST changes: +AUGM875T PO; +FLUT1SPR5 EACH NARE
[2016-11-09 11:49] VITALS: BP 119/61; PULSE 87; RESP 16; TEMP 98.6; O2SAT 99
--- NOTE | 2016-11-09 12:07 | PD ---
HPI Chief Complaint: Cold / Flu Symptoms Time Seen by Provider: 11:53 Travel History International Travel<30 days: No Contact w/Intl Traveler<30days: No Traveled to known affect area: No History of Present Illness HPI The 20-year-old young girl with URI symptoms. She was seen yesterday and treated with antibiotics for sinusitis. She is a history of asthma. She's here because her boyfriend's mom who apparently has Kyle's disease is worried that she may be contagious and wants her tested for flu or pneumonia or strep. She has some continued cough cold symptoms. No real fever. She vomited once. No other complaints. Patient has mild intermittent asthma. She hasn't really had much trouble breathing. She has not used her inhaler. History Past Medical History Narrative Medical Asthma Tetanus Vaccination: < 5 Years : 0 Para: 0 Social History Alcohol Use: No Tobacco Use: No Allergies-Medications (Allergen,Severity, Reaction): Coded Allergies: Dust (Verified Allergy, Severe, ASTHMA ATTACK, 10/01/16) Grass (Verified Allergy, Severe, ASTHMA ATTACK, 10/01/16) Seafood (Verified Allergy, Severe, ASTHMA ATTACK, 10/01/16) Shellfish (Verified Allergy, Severe, Anaphylaxis, 10/01/16) Soy Protein (Verified Allergy, Severe, FACIAL AND LIP SWELLING, DIFFICULTY SWALLOWING, 10/01/16) Reported Meds & Prescriptions Reported Meds & Active Scripts Active Flonase Nasal [place] (Fluticasone Nasal [place]) 50 Mcg/Act [place] 50 Mcg EACH NARE BID Augmentin (Amoxicillin-Clavulanate) 875-125 mg Tab 875 Mg PO BID not for use in CrCl <30 ml/min. Loratadine 10 Mg Tab 10 Mg PO HS Tamiflu (Oseltamivir Phosphate) 75 Mg Cap 75 Mg PO BID Prednisone 20 Mg Tab 20 Mg PO BID 5 Days Reported Albuterol Neb (Albuterol Sulfate) 2.5 Mg/0.5 Ml Neb 2.5 Mg NEB Q4-6H PRN Note: The Albuterol Sulfate Inhalation Solution is concentrated and must be diluted. Read complete instructions carefully before using. Ventolin Hfa 18 GM Inh (Albuterol Sulfate) 90 Mcg/Act Aer 2 Puff INH Q4H PRN Review of Systems Except as stated in HPI: all other systems reviewed are Neg Physical Exam Narrative GENERAL: Well-appearing 20-year-old, no acute distress. SKIN: Focused skin assessment warm/dry. HEAD: Atraumatic. Normocephalic. EYES: Pupils equal and round. No scleral icterus. No injection or drainage. ENT: No nasal bleeding or discharge. Mucous membranes pink and moist. TMs normal, throat normal. NECK: Trachea midline. No JVD. Adenopathy. CARDIOVASCULAR: Regular rate and rhythm. No murmur appreciated. RESPIRATORY: No accessory muscle use. Clear to auscultation. Breath sounds equal bilaterally. No wheezing. GASTROINTESTINAL: Abdomen soft, non-tender, nondistended. Hepatic and splenic margins not palpable. MUSCULOSKELETAL: No obvious deformities. Data Data Last Documented VS Vital Signs Date Time Temp Pulse Resp B/P Pulse Ox O2 Delivery O2 Flow Rate FiO2 11/09/16 11:49 98.6 87 16 119/61 99 MDM Medical Decision Making Medical Screen Exam Complete: Yes Emergency Medical Condition: Yes Differential Diagnosis URI, sinusitis, bronchitis, pneumonia, other Narrative Course Medical decision making 20-year-old URI symptoms. Looks well. Recommend supportive treatment. She can continue antibiotics as prescribed yesterday. No indication for further testing at this time. Diagnosis Primary Impression: Viral syndrome Additional Instructions: Continue albuterol use as needed for wheezing. Use [id number] acetaminophen or ibuprofen as needed for fever body aches. Return to the emergency department for any new or worsening symptoms. Disposition: 01 DISCHARGE HOME Condition: Stable Carlton Faust MD November 09, 2016 12:07
== END 2016-11-09 12:23 | disposition home or self-care (01) ==
LOC: NEPD 11:47
DX: B34.9 Viral infection, unspecified (principal); J45.909 Unspecified asthma, uncomplicated
CPT/HCPCS: 99283

== ENCOUNTER 2016-12-29 18:40 | Emergency (ER) | payer SELFPAY ==
[~2016-12-29] VITALS: Ht 162.6 cm; Wt 47.5 kg
[2016-12-29 18:41] VITALS: BP 113/64; PULSE 95; RESP 14; TEMP 97.9; O2SAT 99
--- NOTE | 2016-12-29 19:17 | PD ---
HPI Chief Complaint: Wound/Suture/Staple Re-Check Time Seen by Provider: 19:14 Travel History International Travel<30 days: No Contact w/Intl Traveler<30days: No Traveled to known affect area: No History of Present Illness HPI 21-year-old white female presents to emergency department with a injury to her left index finger nail. She states that she had broke off her imitation ala couple days ago. She was told by her parents to come in and get it checked. She denies any fever or chills. No drainage. Only minimal tenderness. PFSH Past Medical History ADHD: No Asthma: Yes (has been intubated) Autoimmune Disease: No Weight (Kg): 3 Anxiety: Yes Depression: Yes Heart Rhythm Problems: No Cardiovascular Problems: No High Cholesterol: No Chest Pain: No Congestive Heart Failure: No Diabetes: No Diminished Hearing: No Endocrine: No Gastrointestinal Disorders: No Genitourinary: No Headaches: No Immune Disorder: No Musculoskeletal: No Neurologic: Yes Psychiatric: Yes (Depression) Reproductive: No Respiratory: Yes (ASTHMA) Integumentary: Yes (Eczema) Immunizations Current: Yes Migraines: No Seizures: No Thyroid Disease: No Ulcer: No ?: Not LMP: 12/11/16 : 0 Para: 0 Past Surgical History Appendectomy: No Cholecystectomy: No Other Surgery: Yes Social History Alcohol Use: No Tobacco Use: No Substance Use: Yes (marijuana) Allergies-Medications (Allergen,Severity, Reaction): Coded Allergies: Dust (Verified Allergy, Severe, ASTHMA ATTACK, 12/29/16) Grass (Verified Allergy, Severe, ASTHMA ATTACK, 12/29/16) Seafood (Verified Allergy, Severe, ASTHMA ATTACK, 12/29/16) Shellfish (Verified Allergy, Severe, Anaphylaxis, 12/29/16) Soy Protein (Verified Allergy, Severe, FACIAL AND LIP SWELLING, DIFFICULTY SWALLOWING, 12/29/16) Reported Meds & Prescriptions Reported Meds & Active Scripts Active Reported Albuterol Neb (Albuterol Sulfate) 2.5 Mg/0.5 Ml Neb 2.5 Mg NEB Q4-6H PRN Note: The Albuterol Sulfate Inhalation Solution is concentrated and must be diluted. Read complete instructions carefully before using. Ventolin Hfa 18 GM Inh (Albuterol Sulfate) 90 Mcg/Act Aer 2 Puff INH Q4H PRN Review of Systems Except as stated in HPI: all other systems reviewed are Neg Physical Exam Narrative GENERAL: This is a well-nourished, well-developed patient, in no apparent distress. SKIN: No rashes, ecchymoses or lesions. Warm and dry. HEAD: Atraumatic. Normocephalic. EYES: PERRL, EOMI, no discharge or injection. No scleral icterus. EARS: Clear NOSE: Nasal turbinates appear normal. THROAT: Mucosa pink and moist. Airway patent. NECK: Trachea midline. supple, moves head freely. LUNGS: Clear to auscultation. CV: Regular in rhythm. ABDOMEN: Soft nontender. EXT: No clubbing cyanosis or edema. Patient has a minor nail tip avulsion of the left index finger. No signs of infection. Data Data Last Documented VS Vital Signs Date Time Temp Pulse Resp B/P Pulse Ox O2 Delivery O2 Flow Rate FiO2 12/29/16 18:57 95 14 12/29/16 18:41 97.9 113/64 99 [facility] Medical Decision Making Medical Screen Exam Complete: Yes Emergency Medical Condition: No Medical Record Reviewed: Yes Differential Diagnosis MDM: High Differential diagnoses: Fracture, sprain, strain, dislocation, contusion, neurovascular injury Narrative Course This is nail avulsion Diagnosis Primary Impression: Nail avulsion, finger Qualified Code: S61.309A - Nail avulsion, finger, initial encounter Patient Instructions: General Instructions Departure Forms: Tests/Procedures, Work Release Special Instructions: No work 12/29/16 Additional Instructions: Rest. Elevation. Daily wound care with soap and water apply Neosporin and a Band-Aid. Follow-up with doctor as needed. Disposition: 01 DISCHARGE HOME Condition: Stable Benigno Cantu Dec 29, 2016 19:16
== END 2016-12-29 19:37 | disposition home or self-care (01) ==
LOC: NEPK 18:40
DX: S61.301A Unspecified open wound of left index finger with damage to nail, initial encounter (principal); X58.XXXA Exposure to other specified factors, initial encounter
CPT/HCPCS: 99281

== ENCOUNTER 2017-01-10 18:42 | Observation (INO) | payer MEDICAID ==
[~2017-01-10] VITALS: Ht 154.9 cm; Wt 47.0 kg
[~2017-01-10 18:42] MED LIST changes: -AUGM875T PO; -FLUT1SPR5 EACH NARE; -LORA10TA PO; -OSEL75 PO; -PRED20 PO
[2017-01-10 18:43] VITALS: BP 130/62; PULSE 118; RESP 22; TEMP 98.2; O2SAT 93
[2017-01-10] MEDS ORDERED: SODIUM CHLOR 0.9% 1000 ML INJ 1,000 ML IV ONE ×2 (19:00→20:45)
[2017-01-10] MEDS ORDERED: methylPREDNISolone SOD SUCC 125 MG/2 ML VIAL IVP ONE (19:00)
[2017-01-10] MEDS ORDERED: SODIUM CHLORIDE 0.9% FLUSH 10 ML FLUSH IVF PRN (19:00)
[2017-01-10] MEDS: RESP: ALBUTEROL 2.5 MG/IPRATROPIUM 0.5 MG NEB (SCH) INH ×2 (19:02→19:03)
--- NOTE | 2017-01-10 19:04 | PD ---
HPI Chief Complaint: asthma exacerbation Time Seen by Provider: 18:50 Travel History International Travel<30 days: No Contact w/Intl Traveler<30days: No Traveled to known affect area: No History of Present Illness HPI The patient is a 21-year-old female who presents to the emergency department for asthma exacerbation. The patient is a somewhat limited historian secondary to her clinical state with shortness of breath, retractions, and wheezing. The patient does have a history of asthma, last admission was several months ago with a history of 2 previous intubations. The patient did try her nebulizer earlier today with minimal relief of her symptoms. She does note a dry nonproductive cough, shortness of breath, and wheezing, very similar to previous asthma exacerbations. She also complains of bilateral chest tightness. She denies any fever. Symptoms are moderate, there are no current alleviating or exacerbating factors. She does not currently see a biodiesel process control technician. PFSH Past Medical History ADHD: No Asthma: Yes (has been intubated) Autoimmune Disease: No Anxiety: Yes Depression: Yes Heart Rhythm Problems: No Cardiovascular Problems: No High Cholesterol: No Chest Pain: No Congestive Heart Failure: No Diabetes: No Diminished Hearing: No Endocrine: No Gastrointestinal Disorders: No Genitourinary: No Headaches: No Immune Disorder: No Musculoskeletal: No Neurologic: Yes Psychiatric: Yes (Depression) Reproductive: No Respiratory: Yes (ASTHMA) Integumentary: Yes (Eczema) Immunizations Current: Yes Migraines: No Seizures: No Thyroid Disease: No Ulcer: No : 0 Para: 0 Past Surgical History Appendectomy: No Cholecystectomy: No Other Surgery: Yes Social History Alcohol Use: No Tobacco Use: No Substance Use: Yes (marijuana) Allergies-Medications (Allergen,Severity, Reaction): Coded Allergies: Dust (Verified Allergy, Severe, ASTHMA ATTACK, 12/29/16) Grass (Verified Allergy, Severe, ASTHMA ATTACK, 12/29/16) Seafood (Verified Allergy, Severe, ASTHMA ATTACK, 12/29/16) Shellfish (Verified Allergy, Severe, Anaphylaxis, 12/29/16) Soy Protein (Verified Allergy, Severe, FACIAL AND LIP SWELLING, DIFFICULTY SWALLOWING, 12/29/16) Reported Meds & Prescriptions Reported Meds & Active Scripts Active Reported Albuterol Neb (Albuterol Sulfate) 2.5 Mg/0.5 Ml Neb 2.5 Mg NEB Q4-6H PRN Note: The Albuterol Sulfate Inhalation Solution is concentrated and must be diluted. Read complete instructions carefully before using. Ventolin Hfa 18 GM Inh (Albuterol Sulfate) 90 Mcg/Act Aer 2 Puff INH Q4H PRN Review of Systems Except as stated in HPI: all other systems reviewed are Neg General / Constitutional: No: Fever Cardiovascular: Positive: Chest Pain or Discomfort (tightness), No: Diaphoresis Respiratory: Positive: Cough, Shortness of Breath, Wheezing Gastrointestinal: No: Nausea, Vomiting Musculoskeletal: No: Edema Physical Exam Narrative GENERAL: Awake, alert, nontoxic-appearing 21-year-old female who appears her stated age and is in moderate respiratory distress. SKIN: Focused skin assessment warm/dry. HEAD: Atraumatic. Normocephalic. EYES: Pupils equal and round. No scleral icterus. No injection or drainage. ENT: No nasal bleeding or discharge. Mucous membranes pink and moist. NECK: Trachea midline. No JVD. CARDIOVASCULAR: Regular, tachycardic with a heart rate of 115. RESPIRATORY: Tachypnea with a respiratory rate of 24, supraclavicular retractions, tight lung sounds throughout with prolonged expiratory phase and diffuse wheezing. GASTROINTESTINAL: Abdomen soft, non-tender, nondistended. NEUROLOGICAL: Awake and alert. No obvious cranial nerve deficits. Motor grossly within normal limits. MUSCULOSKELETAL: No obvious deformities. No clubbing. No cyanosis. No edema. PSYCHIATRIC: Appropriate mood and affect; insight and judgment normal. Data Data Last Documented VS Vital Signs Date Time Temp Pulse Resp B/P Pulse Ox O2 Delivery O2 Flow Rate FiO2 01/10/17 19:18 128 27 125/61 99 Non-Rebreather 5 01/10/17 19:18 98.2 Orders Ecg Monitoring (01/10/17 18:54) Iv Access Insert/Monitor (01/10/17 18:54) Oximetry (01/10/17 18:54) Oxygen Administration (01/10/17 18:54) Methylprednisolone So Succ Inj (Solumedr (01/10/17 19:00) Albuterol-Ipratropium Neb (Duoneb Neb) (01/10/17 19:00) Sodium Chloride 0.9% Flush (Ns Flush) (01/10/17 19:00) Resp Blood Gas Venous (01/10/17 ) Sodium Chlor 0.9% 1000 Ml Inj (Ns 1000 M (01/10/17 19:00) Chest, Single Ap (01/10/17 ) Complete Blood Count With Diff (01/10/17 19:37) Basic Metabolic Panel (Bmp) (01/10/17 19:37) Admit Order (Ed Use Only) (01/10/17 20:29) Labs Laboratory Tests Test 01/10/17 18:45 White Blood Count 11.5 TH/MM3 Red Blood Count 4.97 MIL/MM3 Hemoglobin 13.6 GM/DL Hematocrit 41.9 % Mean Corpuscular Volume 84.3 FL Mean Corpuscular Hemoglobin 27.4 PG Mean Corpuscular Hemoglobin 32.5 % Concent Red Cell Distribution Width 15.0 % Platelet Count 311 TH/MM3 Mean Platelet Volume 9.5 FL Neutrophils (%) (Auto) 70.5 % Lymphocytes (%) (Auto) 11.2 % Monocytes (%) (Auto) 5.7 % Eosinophils (%) (Auto) 11.8 % Basophils (%) (Auto) 0.8 % Neutrophils # (Auto) 8.1 TH/MM3 Lymphocytes # (Auto) 1.3 TH/MM3 Monocytes # (Auto) 0.7 TH/MM3 Eosinophils # (Auto) 1.4 TH/MM3 Basophils # (Auto) 0.1 TH/MM3 CBC Comment DIFF FINAL Differential Comment Sodium Level 140 MEQ/L Potassium Level 3.7 MEQ/L Chloride Level 110 MEQ/L Carbon Dioxide Level 24.2 MEQ/L Anion Gap 6 MEQ/L Blood Urea Nitrogen 12 MG/DL Creatinine 0.64 MG/DL Estimat Glomerular Filtration 118 ML/MIN Rate Random Glucose 96 MG/DL Calcium Level 8.8 MG/DL MDM Medical Decision Making Medical Screen Exam Complete: Yes Emergency Medical Condition: Yes Medical Record Reviewed: Yes Interpretation(s) Chest x-rays unremarkable Last Impressions Chest X-Ray 01/10/17 0000 Signed Impressions: Service Date/Time: Tuesday, January 10, 2017 19:52 - CONCLUSION: No acute cardiopulmonary disease. Nima Thao MD Laboratory Tests Test 01/10/17 18:45 White Blood Count 11.5 TH/MM3 Red Blood Count 4.97 MIL/MM3 Hemoglobin 13.6 GM/DL Hematocrit 41.9 % Mean Corpuscular Volume 84.3 FL Mean Corpuscular Hemoglobin 27.4 PG Mean Corpuscular Hemoglobin 32.5 % Concent Red Cell Distribution Width 15.0 % Platelet Count 311 TH/MM3 Mean Platelet Volume 9.5 FL Neutrophils (%) (Auto) 70.5 % Lymphocytes (%) (Auto) 11.2 % Monocytes (%) (Auto) 5.7 % Eosinophils (%) (Auto) 11.8 % Basophils (%) (Auto) 0.8 % Neutrophils # (Auto) 8.1 TH/MM3 Lymphocytes # (Auto) 1.3 TH/MM3 Monocytes # (Auto) 0.7 TH/MM3 Eosinophils # (Auto) 1.4 TH/MM3 Basophils # (Auto) 0.1 TH/MM3 CBC Comment DIFF FINAL Differential Comment Sodium Level 140 MEQ/L Potassium Level 3.7 MEQ/L Chloride Level 110 MEQ/L Carbon Dioxide Level 24.2 MEQ/L Anion Gap 6 MEQ/L Blood Urea Nitrogen 12 MG/DL Creatinine 0.64 MG/DL Estimat Glomerular Filtration 118 ML/MIN Rate Random Glucose 96 MG/DL Calcium Level 8.8 MG/DL Differential Diagnosis Differential diagnosis includes asthma exacerbation, bronchitis, pneumonia, pulmonary embolism, pulmonary edema, congestive heart failure, pleural effusion , pneumothorax. Narrative Course IV was established, the patient was placed on cardiac telemetry monitoring, and placed on continuous pulse oximetry monitoring. Respiratory therapy was immediately called and the patient was administered 3 duo nebs. The patient was administered Solu-Medrol 125 mg intravenously and 1 L of normal saline. The patient is reevaluated at 7:30 and 7:50 PM, her respiratory rate did improve , however, she did remain tachycardic with prolonged expiratory phase and diffuse wheezing. I had a discussion with the patient regarding 23 hour observation versus outpatient follow-up. The patient is high risk and she has to previous intubations, her last intubation was after she was evaluated in the emergency department, returned home, and the returned with status asthmaticus. After discussion was agreed she would be 23 hour observation. Therefore, CBC, BMP were sent to lab and chest x-ray was obtained. The on-call medical service was paged for 23 hour observation. Physician Communication Physician Communication The on-call medical service was paged for 23 hour observation. I discussed the patient with Dr. Loyd who agrees with 23 hour observation. Diagnosis Primary Impression: Asthma with acute exacerbation Qualified Code: J45.901 - Asthma with acute exacerbation, unspecified asthma severity Admitting Information Admitting Physician Requests: Observation Condition: Stable Harvinder Martinez MD Jan 10, 2017 19:03 Harvinder Martinez MD Jan 10, 2017 19:03
[2017-01-10 19:07] VITALS: O2SAT 90
[2017-01-10 19:18] VITALS: BP 125/61; PULSE 128; RESP 27; TEMP 98.2; O2SAT 99
--- NOTE | 2017-01-10 19:58 | RADRPT ---
EXAM DATE/TIME: 01/10/2017 19:52 [facility] COMPARISON: CHEST SINGLE AP, October 01, 2016, 19:18. INDICATIONS : Shortness of breath. Cough. MEDICAL HISTORY : Asthma. SURGICAL HISTORY : None. ENCOUNTER: Initial ACUITY: 1 day PAIN SCORE: 0/10 LOCATION: Bilateral chest FINDINGS: The lungs are clear without infiltrate, nodule, or mass. There is no appreciable pleural effusion fo r technique. Heart and mediastinum are unremarkable. CONCLUSION: No acute cardiopulmonary disease. Nima Thao MD on January 10, 2017 at 19:56 Board Certified Radiologist. This report was verified electronically.
[2017-01-10 20:05] VITALS: O2SAT 100
[2017-01-10 20:34] LABS: AUTOMATED NEUTROPHIL # 8.1 TH/MM3 (1.8-7.7); BASOPHIL # 0.1 TH/MM3 (0-0.2); BASOPHIL % 0.8 % (0.0-2.0); EOSINOPHIL # 1.4 TH/MM3 (0-0.4); EOSINOPHIL % 11.8 % (0.0-4.0); HEMATOCRIT 41.9 % (35.0-46.0); HEMO FLAGS DIFF FINAL; LYMPH % 11.2 % (9.0-44.0); LYMPHOCYTE # 1.3 TH/MM3 (1.0-4.8); MEAN CELL VOLUME 84.3 FL (80.0-100.0); MEAN CORPUSCULAR HEMOGLOBIN 27.4 PG (27.0-34.0); MEAN CORPUSCULAR HGB CONC 32.5 % (32.0-36.0); MONO % 5.7 % (0.0-8.0); NEUT % 70.5 % (16.0-70.0); PLATELET COUNT 311 TH/MM3 (150-450); RED BLOOD COUNT 4.97 MIL/MM3 (4.00-5.30); WHITE BLOOD COUNT 11.5 TH/MM3 (4.0-11.0)
--- NOTE | 2017-01-10 20:40 | HHI.HP ---
[facility] No Primary Care Physician Admission Diagnosis asthma exacerbation Diagnoses: (1) Asthma Diagnosis: Principal (2) Leukocytosis Diagnosis: Principal (3) Tachycardia Diagnosis: Principal Travel History International Travel<30 Days: No Contact w/Intl Traveler <30 Da: No Traveled to Known Affected Are: No History of Present Illness This is a 21-year-old female with a PMH of Anxiety, Depression and Asthma who presented to the ER with complaints of SOB x3-4 hrs. On arrival to ER, pt w/ significant respiratory distress, wheezing and retractions. H/o similar presentations in the past requiring intubation. S/p Solu-Medrol and Neb w/ some improvement. BP 125/61, HR 128, O2 sat 90% on RA, Afebrile. O2 sat currently 96% on RA. WBC 11.5. Chemistry essentially unremarkable. CXR with no acute findings. Review of Systems Except as stated in HPI: all other systems reviewed are Neg ROS: 14 point review of systems otherwise negative. Past Family Social History Past Medical History PMH: Anxiety, Depression and Asthma Past Surgical History PAST SURGICAL HISTORY: None Allergies: Coded Allergies: Dust (Verified Allergy, Severe, ASTHMA ATTACK, 12/29/16) Grass (Verified Allergy, Severe, ASTHMA ATTACK, 12/29/16) Seafood (Verified Allergy, Severe, ASTHMA ATTACK, 12/29/16) Shellfish (Verified Allergy, Severe, Anaphylaxis, 12/29/16) Soy Protein (Verified Allergy, Severe, FACIAL AND LIP SWELLING, DIFFICULTY SWALLOWING, 12/29/16) Family History PAST FAMILY HISTORY: Reviewed. No h/o DM or CAD Social History PAST SOCIAL HISTORY: Negative for alcohol or tobacco. Positive for Marijuana. Physical Exam Vital Signs Vital Signs Date Time Temp Pulse Resp B/P Pulse Ox O2 Delivery O2 Flow Rate FiO2 01/10/17 19:18 128 27 125/61 99 Non-Rebreather 5 01/10/17 19:18 98.2 01/10/17 19:08 28 96 Non-Rebreather 5 01/10/17 19:07 90 Room Air 01/10/17 19:07 96 Non-Rebreather 5 01/10/17 18:43 98.2 118 22 130/62 93 Physical Exam PE: GENERAL: Very pleasant young female in no acute distress. HEENT: PERRLA, EOMI. No scleral icterus or conjunctival pallor. No lid lag or facial droop. CARDIOVASCULAR: Regular rate and rhythm. No obvious murmurs to auscultation. No chest tenderness to palpation. RESPIRATORY: Bilateral expiratory wheezing, decreased breath sounds throughout. GASTROINTESTINAL: Abdomen soft, non-tender, nondistended. BS normal. MUSCULOSKELETAL: Extremities without clubbing, cyanosis, or edema. No obvious deformities. NEUROLOGICAL: Awake, alert and oriented x4. No focal neurologic deficits. Moving both upper and lower extremities spontaneously. Assessment and Plan Problem List: (1) Asthma ICD Code: J45.909 Status: Acute (2) Leukocytosis ICD Code: D72.829 Status: Acute (3) Tachycardia ICD Code: R00.0 Status: Acute Assessment and Plan A/P: 1. Asthma: w/ Acute Exacerbation, h/o severe exacerbations requiring intubation. O2 sat 90% on RA upon arrival, +wheezing/retractions/increased work of breathing, s/p Solu-Medrol/Neb w/ improvement however persistent wheezing/tightness. Admit for Observation, continue Solu-Medrol, Albuterol q4h and q2h prn, Symbicort. 2. Leukocytosis: WBC 11.5 w/ mildly elevated neutrophil count, afebrile. CXR w/ no acute findings, images reviewed by me. In light of symptoms will start on empiric treatment for possible Atypical PNA. 3. Tachycardia: HR 120's upon arrival, currently 100-110, secondary to SOB/ respiratory distress and Neb treatments. Will monitor. 4. DVT Prophylaxis: SCD/Teds. 5. Social work for d/c planning as needed. 6. Case discussed w/ ER physician at length. Kelli Loyd MD Jan 10, 2017 20:40
[2017-01-10 20:43] LABS: BICARBONATE 24.2 MEQ/L (21.0-32.0); POTASSIUM 3.7 MEQ/L (3.5-5.1)
[2017-01-10] MEDS ORDERED: BISACODYL 10 MG SUPP RECTAL PRN (20:45)
[2017-01-10] MEDS ORDERED: ONDANSETRON HCL 4 MG/2 ML VIAL IVP PRN (20:45)
[2017-01-10] MEDS ORDERED: MAGNESIUM HYDROXIDE SUSP 30 ML CUP PO PRN (20:45)
[2017-01-10] MEDS ORDERED: LACTULOSE SYRUP 20 GM/30 ML CUP PO PRN (20:45)
[2017-01-10] MEDS ORDERED: SENNOSIDES 8.6 MG TAB PO PRN (20:45)
[2017-01-10] MEDS ORDERED: ACETAMINOPHEN 325 MG TAB PO PRN (20:45)
[2017-01-10] MEDS: DOCUSATE SODIUM 50 MG/SENNA 8.6 MG TAB PO SCH (21:00)
[2017-01-10 22:00] VITALS: PULSE 118; RESP 26; O2SAT 99
[2017-01-10 22:38] VITALS: PULSE 110; RESP 24; O2SAT 96
[2017-01-10] MEDS: LEVOFLOXACIN 750 MG PREMIX INJ 150 ML IV SCH (22:43)
[2017-01-10] MEDS: SODIUM CHLORIDE 0.9% FLUSH 10 ML FLUSH IV FLUSH SCH (22:43)
[2017-01-11] VITALS (9 sets, daily range): BP systolic 111–133; BP diastolic 55–59; PULSE 97–119; RESP 16–20; TEMP 96.1–98.5; O2SAT 94–96
[2017-01-11] MEDS: RESP: ALBUTEROL 2.5 MG/3 ML NEB (PRN) NEB ×3 (00:30→05:19)
[2017-01-11] MEDS: RESP: ALBUTEROL 2.5 MG/3 ML NEB (SCH) NEB ×6 (02:55→20:21)
[2017-01-11 07:21] LABS: AUTOMATED NEUTROPHIL # 5.3 TH/MM3 (1.8-7.7); BASOPHIL % 0.3 % (0.0-2.0); HEMATOCRIT 39.1 % (35.0-46.0); HEMO FLAGS DIFF FINAL; LYMPH % 10.2 % (9.0-44.0); LYMPHOCYTE # 0.6 TH/MM3 (1.0-4.8); MEAN CELL VOLUME 83.3 FL (80.0-100.0); MEAN CORPUSCULAR HEMOGLOBIN 27.9 PG (27.0-34.0); MEAN CORPUSCULAR HGB CONC 33.5 % (32.0-36.0); MONO % 3.9 % (0.0-8.0); NEUT % 85.6 % (16.0-70.0); PLATELET COUNT 275 TH/MM3 (150-450); RED CELL DISTRIBUTION WIDTH 14.8 % (11.6-17.2); WHITE BLOOD COUNT 6.2 TH/MM3 (4.0-11.0)
[2017-01-11] MEDS ORDERED: methylPREDNISolone SOD SUCC 40 MG/1 ML VIAL IV PUSH ONE (07:45)
[2017-01-11 07:50] LABS: ALT (GPT) 16 U/L (9-42); ANION GAP 13 MEQ/L (5-15); AST (GOT) 10 U/L (16-38); BICARBONATE 18.6 MEQ/L (21.0-32.0); BLOOD UREA NITROGEN 8 MG/DL (7-18); CHLORIDE 108 MEQ/L (98-107); GLOMERULAR FILTRATION RATE 127 ML/MIN (>89); POTASSIUM 3.5 MEQ/L (3.5-5.1); SODIUM (NA) 140 MEQ/L (136-145)
[2017-01-11 07:51] LABS: ALKALINE PHOSPHATASE 58 U/L (45-117); TOTAL BILIRUBIN ADULT 0.4 MG/DL (0.2-1.0)
[2017-01-11] MEDS: BUDESONIDE-FORMOTEROL 160/4.5 MCG INHALER INH SCH ×2 (08:02→21:53)
[2017-01-11] MEDS: SODIUM CHLORIDE 0.9% FLUSH 10 ML FLUSH IV FLUSH SCH ×2 (08:03→21:54)
[2017-01-11] MEDS: DOCUSATE SODIUM 50 MG/SENNA 8.6 MG TAB PO SCH ×2 (08:03→21:00)
[2017-01-11] MEDS ORDERED: MAGNESIUM SULFATE 1 GM PREMIX 100 ML IV ONE (08:15)
--- NOTE | 2017-01-11 08:21 | HHI.PR ---
Subjective Remarks Follow up for asthma exacerbation. The patient reports continued wheezing overnight with nonproductive cough. Denies fevers/chills. She reports chest tightness. She is only minimally improved compared to yesterday. She has albuterol nebs and inhaler at home. Objective Vitals Vital Signs Date Time Temp Pulse Resp B/P Pulse Ox O2 Delivery O2 Flow Rate FiO2 01/11/17 07:46 96 01/11/17 03:47 98.2 116 16 133/57 95 01/11/17 00:36 96 21 01/11/17 00:33 96.2 109 19 111/57 94 01/10/17 22:38 110 24 96 Room Air 01/10/17 22:00 118 26 99 Nasal Cannula 2 01/10/17 20:05 100 5 01/10/17 19:18 128 27 125/61 99 Non-Rebreather 5 01/10/17 19:18 98.2 01/10/17 19:08 28 96 Non-Rebreather 5 01/10/17 19:07 90 Room Air 01/10/17 19:07 96 Non-Rebreather 5 01/10/17 18:43 98.2 118 22 130/62 93 I/O 01/10/17 01/10/17 01/10/17 01/11/17 01/11/17 01/11/17 07:00 15:00 23:00 07:00 15:00 23:00 Intake Total 500 ml Balance 500 ml Intake IV Total 500 ml Result Diagram: 01/11/17 0546 01/11/17 0546 Imaging Last Impressions Chest X-Ray 01/10/17 0000 Signed Impressions: Service Date/Time: Tuesday, January 10, 2017 19:52 - CONCLUSION: No acute cardiopulmonary disease. Nima Thao MD Objective Remarks GENERAL: Well-nourished, well-developed young female patient in [facility]. SKIN: Warm and dry. No rash. HEENT: Normocephalic. Atraumatic.Pupils equal and round. Mucous membranes pink and moist. NECK: Supple. Trachea midline. CARDIOVASCULAR: Regular rate and rhythm. S1, S2 noted. No murmur appreciated. RESPIRATORY: No accessory muscle use. Significant diffuse wheezing and scattered rhonchi. Breath sounds equal bilaterally. GASTROINTESTINAL: Abdomen soft, non-tender, nondistended. Normoactive bowel sounds x4. MUSCULOSKELETAL: No obvious deformities. Extremities without clubbing, cyanosis , or edema. NEUROLOGICAL: Awake and alert. No obvious cranial nerve deficits. Motor grossly within normal limits. Normal speech. PSYCHIATRIC: Appropriate mood and affect; insight and judgment normal. Medications and IVs Last Impressions Chest X-Ray 01/10/17 0000 Signed Impressions: Service Date/Time: Tuesday, January 10, 2017 19:52 - CONCLUSION: No acute cardiopulmonary disease. Nima Thao MD A/P Problem List: (1) Asthma ICD Code: J45.909 Status: Acute (2) Leukocytosis ICD Code: D72.829 Status: Acute (3) Tachycardia ICD Code: R00.0 Status: Acute Assessment and Plan 21-year-old female with a PMH of Anxiety, Depression and Asthma who presented to the ER with complaints of SOB x3-4 hrs. On arrival to ER, pt w/ significant respiratory distress, wheezing and retractions. H/o similar presentations in the past requiring intubation. Acute Asthma Exacerbation: h/o severe exacerbations requiring intubation. O2 sat 90% on RA upon arrival, +wheezing/retractions/increased work of breathing. Continue IV Solu-Medrol 40mg q6h, Albuterol q4h and q2h prn, Symbicort bid. Added IV mag sulfate x1. Tessalon prn cough. Leukocytosis: WBC 11.5 w/ mildly elevated neutrophil count, afebrile. CXR w/ no acute findings, images reviewed by me. In light of symptoms will start on empiric treatment with IV Levaquin for possible Atypical PNA. Tachycardia: HR 120's upon arrival, currently 100-110, secondary to SOB/ respiratory distress and Neb treatments. Will monitor. DVT Prophylaxis: SCD/Teds. Discharge Planning Not yet ready for discharge, pending further clinical improvement. Alejandra Ragland PA-C Jan 11, 2017 8:21 am
[2017-01-11] MEDS ORDERED: BENZONATATE 100 MG CAP PO PRN (08:30)
[2017-01-11] MEDS: SODIUM CHLORIDE 0.9% FLUSH 10 ML FLUSH IV FLUSH PRN ×2 (12:32→18:18)
[2017-01-11] MEDS: methylPREDNISolone SOD SUCC 40 MG/1 ML VIAL IV PUSH SCH ×2 (12:32→18:18)
[2017-01-11] MEDS: LEVOFLOXACIN 750 MG PREMIX INJ 150 ML IV SCH (21:53)
[2017-01-12] VITALS: BP 132/60; PULSE 120; RESP 20; TEMP 97.3; O2SAT 97
[2017-01-12] MEDS: RESP: ALBUTEROL 2.5 MG/3 ML NEB (PRN) NEB ×2 (00:08→06:02)
[2017-01-12] MEDS: methylPREDNISolone SOD SUCC 40 MG/1 ML VIAL IV PUSH SCH ×3 (01:02→13:19)
[2017-01-12 04:00] VITALS: BP 108/57; PULSE 100; RESP 18; TEMP 98.4; O2SAT 94
[2017-01-12] MEDS: RESP: ALBUTEROL 2.5 MG/3 ML NEB (SCH) NEB ×3 (07:44→15:36)
[2017-01-12 07:45] VITALS: O2SAT 94
[2017-01-12 08:01] VITALS: BP 96/54; PULSE 101; RESP 16; TEMP 98; O2SAT 95
[2017-01-12] MEDS: DOCUSATE SODIUM 50 MG/SENNA 8.6 MG TAB PO SCH (09:00)
[2017-01-12] MEDS: BUDESONIDE-FORMOTEROL 160/4.5 MCG INHALER INH SCH (09:03)
[2017-01-12] MEDS: SODIUM CHLORIDE 0.9% FLUSH 10 ML FLUSH IV FLUSH SCH (09:05)
--- NOTE | 2017-01-12 11:01 | HHI.PR ---
Subjective Remarks Follow up for asthma exacerbation. The patient is sleeping upon my arrival, easily awaken to voice. She reports feeling much better and wants to go home. She denies any further wheezing but does feel her chest is congested. She denies any shortness of breath or chest pain. She has been off oxygen, O2 sat 95 % on room air. Although patient wants to go home, explained would be beneficial to see steamtable attendant railroad in hospital and follow as outpatient. The patient reports she is in the process of obtaining insurance again, just have to file paperwork , but she does follow with a PCP. Objective Vitals Vital Signs Date Time Temp Pulse Resp B/P Pulse Ox O2 Delivery O2 Flow Rate FiO2 01/12/17 08:01 98.0 101 16 96/54 95 01/12/17 07:45 94 21 01/12/17 04:00 98.4 100 18 108/57 94 01/12/17 00:00 97.3 120 20 132/60 97 01/11/17 20:22 96 21 01/11/17 20:00 96.1 97 18 117/58 94 01/11/17 16:03 98.5 113 18 113/55 94 01/11/17 11:55 98.0 97 18 116/58 94 I/O 01/11/17 01/11/17 01/11/17 01/12/17 01/12/17 01/12/17 07:00 15:00 23:00 07:00 15:00 23:00 Intake Total 500 ml 1040 ml Balance 500 ml 1040 ml Intake Oral 240 ml IV Total 500 ml 800 ml # Voids 1 1 Result Diagram: 01/11/17 0546 01/11/17 0546 Imaging Last Impressions Chest X-Ray 01/10/17 0000 Signed Impressions: Service Date/Time: Tuesday, January 10, 2017 19:52 - CONCLUSION: No acute cardiopulmonary disease. Nima Thao MD Objective Remarks GENERAL: Well-nourished, well-developed young female patient in [facility]. SKIN: Warm and dry. HEENT: Normocephalic. Atraumatic.Pupils equal and round. Mucous membranes pink and moist. NECK: Trachea midline. CARDIOVASCULAR: Regular rate and rhythm. S1, S2 noted. No murmur appreciated. RESPIRATORY: No accessory muscle use. Minimal end expiratory wheezing, otherwise clear to auscultation, much improved. Breath sounds equal bilaterally. GASTROINTESTINAL: Abdomen soft, non-tender, nondistended. MUSCULOSKELETAL: No obvious deformities. Extremities without clubbing, cyanosis , or edema. NEUROLOGICAL: Awake and alert. Normal speech. PSYCHIATRIC: Appropriate mood and affect; insight and judgment normal. Medications and IVs Current Medications Medications (Trade) Dose Ordered Sig/Patrick Route Start Time Stop Time Status Last Admin Budesonide/ Formoterol Fumarate 2 puff 2 puff Q12HR INH 01/10/17 21:00 01/12/17 09:03 (Levaquin 750 Mg Premix Inj) 150 ml @ 100 mls/hr Q24H IV 01/10/17 21:00 01/11/17 21:53 (NS Flush) 2 ml UNSCH PRN IV FLUSH 01/10/17 20:45 01/11/17 18:18 (NS Flush) 2 ml BID IV FLUSH 01/10/17 21:00 01/12/17 09:05 (Zofran Inj) 4 mg Q6H PRN IVP 01/10/17 20:45 (Tylenol) 650 mg Q6H PRN PO 01/10/17 20:45 (Tenisha-Colace) 1 tab BID PO 01/10/17 21:00 (Milk Of Magnesia Liq) 30 ml Q12H PRN PO 01/10/17 20:45 (Senokot) 17.2 mg Q12H PRN PO 01/10/17 20:45 (Dulcolax Supp) 10 mg DAILY PRN RECTAL 01/10/17 20:45 (Lactulose Liq) 30 ml DAILY PRN PO 01/10/17 20:45 (SoluMEDROL INJ) 40 mg Q6HR IV PUSH 01/11/17 12:00 01/12/17 05:27 (Tessalon) 200 mg Q8H PRN PO 01/11/17 08:30 A/P Problem List: (1) Asthma ICD Code: J45.909 Status: Acute (2) Leukocytosis ICD Code: D72.829 Status: Acute (3) Tachycardia ICD Code: R00.0 Status: Acute Assessment and Plan 21-year-old female with a PMH of Anxiety, Depression and Asthma who presented to the ER with complaints of SOB x3-4 hrs. On arrival to ER, pt w/ significant respiratory distress, wheezing and retractions. H/o similar presentations in the past requiring intubation. Acute Asthma Exacerbation: h/o severe exacerbations requiring intubation (last time in early teens while in middle school). O2 sat 90% on RA upon arrival, + wheezing/retractions/increased work of breathing. Continue IV Solu-Medrol 40mg q6h, Albuterol q4h and q2h prn, Symbicort bid. Given IV mag sulfate x1. Tessalon prn cough. Consult pulmonology. Much improved today. Check walk test. Leukocytosis: WBC 11.5 w/ mildly elevated neutrophil count, afebrile. CXR w/ no acute findings, images reviewed by me. In light of symptoms, started on empiric treatment with IV Levaquin for possible Atypical PNA. Leukocytosis resolved with WBC 6.2K. Tachycardia: HR 120's upon arrival, currently 100-110, secondary to SOB/ respiratory distress, steroids, and Neb treatments. Will monitor. Stable. DVT Prophylaxis: SCD/Teds. Discharge Planning 1030hrs: Possible discharge later today if continued clinical improvement and after seen by pulmonology. Will place mandatory outpatient f/up to see steamtable attendant railroad after discharge. 1340hrs: Patient much improved. Passed home O2 walk test with O2 sat 93% on room air with exertion. The patient adamantly wants to go home. Will discharge. Discharge patient to home Condition on discharge: Improved Regular Diet as tolerated Ad Kati activity Rx written: Prednisone taper, albuterol nebs and rescue inhaler, Levaquin 750mg x3days (5days total), Symbicort BID Follow-up with primary care physician and steamtable attendant railroad Alejandra Ragland PA-C Jan 12, 2017 11:01
[2017-01-12 11:30] VITALS: BP 100/55; PULSE 98; RESP 15; TEMP 97.9; O2SAT 95
[2017-01-12] MEDS ORDERED: ALBU.5I NEB (13:40)
[2017-01-12] MEDS ORDERED: PRED20 PO (13:40)
[2017-01-12] MEDS ORDERED: LEVO750T3 PO (13:40)
[2017-01-12] MEDS ORDERED: VENTAER INH (13:40)
[2017-01-12] MEDS ORDERED: SYMB160A INH (13:41)
--- NOTE | 2017-01-12 13:43 | HHI.DCPOC ---
Discharge Care Plan Diagnosis: (1) Asthma with acute exacerbation Your Health Problems Are: Cough Shortness of Breath Goals to Promote Your Health * To prevent worsening of your condition and complications * To maintain your health at the optimal level Directions to Meet Your Goals Take your medications as prescribed Follow your dietary instruction Follow activity as directed Keep your appointments as scheduled Take your immunizations and boosters as scheduled If your symptoms worsen call your PCP, if no PCP go to Urgent Care Center or Emergency Room Smoking is Dangerous to Your Health. Avoid second hand smoke Call the 24-hour hour crisis hotline for domestic abuse at Alejandra Ragland PA-C Jan 12, 2017 1:43 pm
[2017-01-12 15:51] VITALS: BP 107/57; PULSE 110; RESP 16; TEMP 97.9; O2SAT 95
== END 2017-01-12 16:42 | disposition home or self-care (01) ==
LOC: NEPD 18:42 → NEDA 20:31 → NEPFCDU 01-11 00:08
PROVIDERS: ADMIT Hospitalist; ATTEND Hospitalist
DX: J45.901 Unspecified asthma with (acute) exacerbation (principal); D72.829 Elevated white blood cell count, unspecified; R00.0 Tachycardia, unspecified; F32.9 Major depressive disorder, single episode, unspecified; F41.9 Anxiety disorder, unspecified; L30.9 Dermatitis, unspecified
CPT/HCPCS: 71010; 80048; 80053; 85025; 94620; 94640; 94664; 96374; 99285; G0378; J1956; J2920; J2930; J3475; J7030; J7613

== ENCOUNTER 2017-02-13 00:46 | Emergency (ER) | payer MEDICAID ==
[~2017-02-13] VITALS: Ht 154.9 cm; Wt 47.5 kg
[~2017-02-13 00:46] MED LIST changes: +LEVO750T3 PO; +PRED20 PO; +SYMB160A INH
[2017-02-13 00:48] VITALS: BP 118/61; PULSE 77; RESP 16; TEMP 98.3; O2SAT 98
--- NOTE | 2017-02-13 01:56 | PD ---
HPI Chief Complaint: Cold / Flu Symptoms Time Seen by Provider: 01:48 Travel History International Travel<30 days: No Contact w/Intl Traveler<30days: No Traveled to known affect area: No History of Present Illness HPI 21-year-old female with history of asthma presents for evaluation of cough, congestion, wheezing, sinus pressure and chills. Symptoms started 2-3 days ago. She reports that all of the members of her family are sick with similar upper respiratory symptoms. The patient has run out of her albuterol inhaler. She has been using her albuterol nebulizer as needed. She has no other complaints at this time. [facility] Past Medical History ADHD: No Asthma: Yes (has been intubated) Autoimmune Disease: No Weight (Kg): 3 Anxiety: Yes Depression: Yes Heart Rhythm Problems: No Cardiovascular Problems: No High Cholesterol: No Chest Pain: No Congestive Heart Failure: No Diabetes: No Diminished Hearing: No Endocrine: No Gastrointestinal Disorders: No Genitourinary: No Headaches: No Immune Disorder: No Musculoskeletal: No Neurologic: No Psychiatric: Yes (Depression) Reproductive: No Respiratory: Yes (asthma) Integumentary: Yes (Eczema) Immunizations Current: Yes Migraines: No Seizures: No Thyroid Disease: No Ulcer: No Tetanus Vaccination: < 5 Years Influenza Vaccination: No ?: Unknown LMP: 02/06/17 : 0 Para: 0 Past Surgical History Surgical History: No Previous Surgery Appendectomy: No Cholecystectomy: No Other Surgery: Yes Social History Alcohol Use: No Tobacco Use: No Substance Use: No Allergies-Medications (Allergen,Severity, Reaction): Coded Allergies: Fish Containing Products (Unverified Allergy, Severe, ASTHMA ATTACK, ) grass pollen (Unverified Allergy, Severe, ASTHMA ATTACK, 02/13/17) house dust (Unverified Allergy, Severe, ASTHMA ATTACK, 02/13/17) shellfish derived (Unverified Allergy, Severe, Anaphylaxis, 02/13/17) soy (Unverified Allergy, Severe, FACIAL AND LIP SWELLING, DIFFICULTY SWALLOWING, 02/13/17) Reported Meds & Prescriptions Reported Meds & Active Scripts Active Tessalon Perles (Benzonatate) 100 Mg Cap 200 Mg PO TID PRN Prednisone 20 Mg Tab 20 Mg PO BID 5 Days Proair Hfa 8.5 GM Inh (Albuterol Sulfate) 90 Mcg/Act Aer 2 Puff INH Q4-6H PRN 108 mcg/actuation Symbicort Inh (Budesonide/Formoterol Fumarate) 160-4.5 Mcg/Act Aero 2 Puff INH Q12HR Prednisone 20 Mg Tab 20 Mg PO DIRECTED Take 40 MG twice a day x 3 days, then take 20mg twice a day x 3 days, then take 20mg once a day x 3 days, then stop. Levofloxacin 750 Mg Tablet 750 Mg PO DAILY Albuterol Neb (Albuterol Sulfate) 2.5 Mg/0.5 Ml Neb 2.5 Mg NEB Q4-6H PRN Note: The Albuterol Sulfate Inhalation Solution is concentrated and must be diluted. Read complete instructions carefully before using. Ventolin Hfa 18 GM Inh (Albuterol Sulfate) 90 Mcg/Act Aer 2 Puff INH Q4H PRN Review of Systems Except as stated in HPI: all other systems reviewed are Neg Physical Exam Narrative GENERAL: Well-nourished female in no acute distress vital signs reviewed SKIN: Warm and dry. HEAD: Atraumatic. Normocephalic. EYES: Pupils equal and round. No scleral icterus. No injection or drainage. ENT: No nasal bleeding or discharge. Mucous membranes pink and moist. NECK: Trachea midline. No JVD. CARDIOVASCULAR: Regular rate and rhythm. No murmur appreciated. RESPIRATORY: No accessory muscle use. Diffuse wheezing bilaterally. No tachypnea. No accessory muscle use. GASTROINTESTINAL: Abdomen soft, non-tender, nondistended. Hepatic and splenic margins not palpable. Data Data Last Documented VS Vital Signs Date Time Temp Pulse Resp B/P Pulse Ox O2 Delivery O2 Flow Rate FiO2 02/13/17 00:48 98.3 77 16 118/61 98 Room Air Orders Chest, Single Ap (02/13/17 ) Albuterol-Ipratropium Neb (Duoneb Neb) (02/13/17 02:00) Prednisone (Deltasone) (02/13/17 02:00) Influenzae A/B Antigen (02/13/17 01:53) MDM Medical Decision Making Medical Screen Exam Complete: Yes Emergency Medical Condition: Yes Medical Record Reviewed: Yes Differential Diagnosis Asthma exacerbation, bronchitis, pneumonia, influenza, sinusitis Narrative Course 21-year-old female with asthma presents with 2 days of cough, congestion, wheezing, chills, sinus congestion. Examination reveals diffuse wheezing bilaterally. She is not tachypneic, tachycardic, hypoxic, febrile and she appears well. The plan would be for influenza antigen, chest x-ray, DuoNeb therapy and prednisone. Chest x-ray Influenza antigen test are negative. The patient is stable for discharge. Diagnosis Primary Impression: Asthma with acute exacerbation Qualified Code: J45.901 - Asthma with acute exacerbation, unspecified asthma severity Additional Instructions: Medication as prescribed. Follow-up with primary care physician. Return for any new or worsening symptoms. Med/Other Pt SpecificInfo: Prescription(s) given Scripts Benzonatate (Tessalon Perles)100 Mg [id number] Mg PO TID PRN (COUGH) #30 CAP Ref 0 Prov:Vipul Allen MD 02/13/17 Prednisone 20 Mg Tab20 Mg PO BID 5 Days Ref 0 Prov:Vipul Allen MD 02/13/17 Albuterol 8.5 GM Inh (Proair Hfa 8.5 GM Inh)90 Mcg/Act Aer2 Puff INH Q4-6H PRN ( SHORTNESS OF BREATH) #1 INHALER Ref 0 108 mcg/actuation Prov:Vipul Allen MD 02/13/17 Disposition: 01 DISCHARGE HOME Condition: Stable Ray Chaney Feb 13, 2017 01:56
[2017-02-13] MEDS ORDERED: predniSONE 20 MG TAB PO ONE (02:00)
--- NOTE | 2017-02-13 02:13 | RADRPT ---
EXAM DATE/TIME: 02/13/2017 01:50 [place] COMPARISON: CHEST SINGLE AP, January 10, 2017, 19:52. INDICATIONS : Cough. MEDICAL HISTORY : Asthma SURGICAL HISTORY : None. ENCOUNTER: Initial ACUITY: 2 days PAIN SCORE: 5/10 LOCATION: Bilateral chest FINDINGS: A single view of the chest demonstrates the lungs to be symmetrically aerated without evidence of mas s, infiltrate or effusion. The cardiomediastinal contours are unremarkable. Osseous structures are intact. CONCLUSION: No acute cardiopulmonary process. Imtiaz Nguyễn MD on February 13, 2017 at 2:12 Board Certified Radiologist. This report was verified electronically.
[2017-02-13] MEDS: RESP: ALBUTEROL 2.5 MG/IPRATROPIUM 0.5 MG NEB (SCH) INH (02:16)
[2017-02-13] MEDS ORDERED: BENZ100 PO (02:29)
[2017-02-13] MEDS ORDERED: PRED20 PO (02:29)
[2017-02-13] MEDS ORDERED: ALBUAER3 INH (02:29)
== END 2017-02-13 03:16 | disposition home or self-care (01) ==
LOC: NEPK 00:46
DX: J45.901 Unspecified asthma with (acute) exacerbation (principal)
CPT/HCPCS: 71010; 87804; 94640; 94664; 99284; J7512

== ENCOUNTER 2017-04-23 14:10 | Emergency (ER) | payer MEDICAID ==
[~2017-04-23] VITALS: Ht 154.9 cm; Wt 47.5 kg
[~2017-04-23 14:10] MED LIST changes: +ALBUAER3 INH; +BENZ100 PO
[2017-04-23 14:12] VITALS: BP 128/56; PULSE 68; RESP 12; TEMP 98.2; O2SAT 96
--- NOTE | 2017-04-23 14:37 | PD ---
HPI Chief Complaint: Respiratory Symptoms Time Seen by Provider: 14:35 Travel History International Travel<30 days: No Contact w/Intl Traveler<30days: No Traveled to known affect area: No History of Present Illness HPI 21-year-old [place]oc[place] female presents the emergency department with increased asthma symptoms over the past week. Patient denies fever, but feels he seen wheezing, cough, shortness of breath not improved with her rescue inhaler or nebulizer at home. Patient states she feels she many steroids which she as needed in the past. Patient takes no other medications other than albuterol. Is noticed that she was here in January with similar presentation. Patient also has history of allergies to fish, grass pollen, house dust, shellfish and soy. She has no allergies to medications. PFSH Past Medical History ADHD: No Asthma: Yes (has been intubated) Autoimmune Disease: No Anxiety: Yes Depression: Yes Heart Rhythm Problems: No Cardiovascular Problems: No High Cholesterol: No Chest Pain: No Congestive Heart Failure: No Diabetes: No Diminished Hearing: No Endocrine: No Gastrointestinal Disorders: No Genitourinary: No Headaches: No Immune Disorder: No Musculoskeletal: No Neurologic: No Psychiatric: Yes (Depression) Reproductive: No Respiratory: Yes Integumentary: Yes (Eczema) Immunizations Current: Yes Migraines: No Seizures: No Thyroid Disease: No Ulcer: No ?: Not LMP: 04/03/17 : 0 Para: 0 Past Surgical History Appendectomy: No Cholecystectomy: No Other Surgery: Yes Social History Alcohol Use: No Tobacco Use: No Substance Use: No Allergies-Medications (Allergen,Severity, Reaction): Coded Allergies: Fish Containing Products (Unverified Allergy, Severe, ASTHMA ATTACK, ) grass pollen (Unverified Allergy, Severe, ASTHMA ATTACK, 02/13/17) house dust (Unverified Allergy, Severe, ASTHMA ATTACK, 02/13/17) shellfish derived (Unverified Allergy, Severe, Anaphylaxis, 02/13/17) soy (Unverified Allergy, Severe, FACIAL AND LIP SWELLING, DIFFICULTY SWALLOWING, 02/13/17) Reported Meds & Prescriptions Reported Meds & Active Scripts Active Flovent Hfa 12 GM Inh (Fluticasone Propionate) 220 Mcg/Act Inh 1 Puff INH BID Use daily at the same time. Azithromycin 500 Mg Tab 500 Mg PO DAILY Ventolin Hfa 18 GM Inh (Albuterol Sulfate) 90 Mcg/Act Aer 2 Puff INH Q4-6H PRN Prednisone 20 Mg Tab 20 Mg PO BID 5 Days Tessalon Perles (Benzonatate) 100 Mg Cap 200 Mg PO TID PRN Proair Hfa 8.5 GM Inh (Albuterol Sulfate) 90 Mcg/Act Aer 2 Puff INH Q4-6H PRN 108 mcg/actuation Symbicort Inh (Budesonide/Formoterol Fumarate) 160-4.5 Mcg/Act Aero 2 Puff INH Q12HR Prednisone 20 Mg Tab 20 Mg PO DIRECTED Take 40 MG twice a day x 3 days, then take 20mg twice a day x 3 days, then take 20mg once a day x 3 days, then stop. Levofloxacin 750 Mg Tablet 750 Mg PO DAILY Albuterol Neb (Albuterol Sulfate) 2.5 Mg/0.5 Ml Neb 2.5 Mg NEB Q4-6H PRN Note: The Albuterol Sulfate Inhalation Solution is concentrated and must be diluted. Read complete instructions carefully before using. Ventolin Hfa 18 GM Inh (Albuterol Sulfate) 90 Mcg/Act Aer 2 Puff INH Q4H PRN Review of Systems Except as stated in HPI: all other systems reviewed are Neg General / Constitutional: No: Fever, Chills Eyes: No: Visual changes HENT: Positive: Rhinitis, Congestion, No: Headaches, Vertigo, Lightheadedness, Sore Throat, Rhinorrhea, Nosebleed, Neck Stiffness, Neck Pain, Ear Discharge, Earache Cardiovascular: No: Chest Pain or Discomfort Respiratory: Positive: Cough, Shortness of Breath, Wheezing, No: Sneezing Gastrointestinal: No: Nausea, Vomiting, Diarrhea, Abdominal Pain Genitourinary: No: Dysuria Musculoskeletal: No: Pain Skin: No Rash Neurologic: No: Weakness Psychiatric: No: Depression Endocrine: No: Polydipsia Hematologic/Lymphatic: No: Easy Bruising Physical Exam Narrative GENERAL: Patient appears in no acute distress SKIN: Warm and dry. Normal color. Normal turgor. No cyanosis. HEAD: Atraumatic. Normocephalic. EYES: Pupils equal and round. No scleral icterus. No injection or drainage. ENT: No nasal bleeding. Mucous membranes pink and moist. Pharynx is clear. Airway is patent. TMs are clear bilaterally. Patient has had clear rhinitis. NECK: Trachea midline. Supple and nontender. CARDIOVASCULAR: Regular rate and rhythm. RESPIRATORY: No accessory muscle use. Moderate diffuse wheezing throughout to auscultation. Breath sounds equal bilaterally. No rhonchi or rales. GASTROINTESTINAL: Abdomen soft, non-tender, nondistended. Hepatic and splenic margins not palpable. MUSCULOSKELETAL: Extremities without clubbing, cyanosis, or edema. No obvious deformities. NEUROLOGICAL: Awake and alert. No obvious cranial nerve deficits. Motor grossly within normal limits. Five out of 5 muscle strength in the arms and legs. Normal speech. PSYCHIATRIC: Appropriate mood and affect; insight and judgment normal. Data Data Last Documented VS Vital Signs Date Time Temp Pulse Resp B/P (MAP) Pulse Ox O2 Delivery O2 Flow Rate FiO2 04/23/17 14:12 98.2 68 12 128/56 (80) 96 Orders Orders Prednisone (Deltasone) (04/23/17 14:45) Albuterol-Ipratropium Neb (Duoneb Neb) (04/23/17 14:45) Azithromycin (Zithromax) (04/23/17 14:45) MDM Medical Decision Making Medical Screen Exam Complete: Yes Emergency Medical Condition: Yes Differential Diagnosis Asthma with acute exacerbation. Wheezing. Bronchitis. Rhinitis. Narrative Course Patient appears medically stable at time of exam. Patient is given DuoNeb 1 as well as prednisone 40 mg by mouth now. Patient is given azithromycin 500 mg by mouth now. Patient will be continued on azithromycin 5 mg daily for the next 5 days. Patient also continued on prednisone 20 mg twice a day 5 days. Patient started on Flovent 220 g 1 puff twice a day. Refills given a Ventolin metered-dose inhaler 2 puffs every 4-6 hours when necessary. Patient referred to [facility] for further primary care provider. Diagnosis Primary Impression: Asthma with acute exacerbation Additional Impression: Wheezy bronchitis Referrals: [facility] call for appointment Patient Instructions: Asthma (ED), General Instructions, Prednisone (By mouth) Additional Instructions: Patient is given DuoNeb 1 as well as prednisone 40 mg by mouth now. Patient is given azithromycin 500 mg by mouth now. Patient will be continued on azithromycin 5 mg daily for the next 5 days. Patient also continued on prednisone 20 mg twice a day 5 days. Patient started on Flovent 220 g 1 puff twice a day. Refills given a Ventolin metered-dose inhaler 2 puffs every 4-6 hours when necessary. Patient referred to [facility] for further primary care provider. Med/Other Pt SpecificInfo: Prescription(s) given Scripts Fluticasone 12 GM Inh (Flovent Hfa 12 GM Inh) 220 Mcg/Act Inh 1 PUFF INH BID for Asthma Management, #1 INHALER 0 Refills Use daily at the same time. Prov: Gordo Lambert MD 04/23/17 Azithromycin (Azithromycin) 500 Mg Tab 500 MG PO DAILY for Infection, #5 TAB 0 Refills Prov: Gordo Lambert MD 04/23/17 Albuterol 18 GM Inh (Ventolin Hfa 18 GM Inh) 90 Mcg/Act Aer 2 PUFF INH Q4-6H Y for SHORTNESS OF BREATH, #1 INHALER 0 Refills Prov: Gordo Lambert MD 04/23/17 Prednisone (Prednisone) 20 Mg Tab 20 MG PO BID for 5 Days, TAB 0 Refills Prov: Gordo Lambert MD 04/23/17 Disposition: 01 DISCHARGE HOME Condition: Stable Cale Zamora Apr 23, 2017 14:37
[2017-04-23] MEDS ORDERED: FLUTI220I INH ×2 (14:44)
[2017-04-23] MEDS ORDERED: AZIT500T2 PO ×2 (14:44)
[2017-04-23] MEDS ORDERED: PRED20 PO ×2 (14:44)
[2017-04-23] MEDS ORDERED: VENTAER INH ×2 (14:44)
[2017-04-23] MEDS ORDERED: RESP: ALBUTEROL 2.5 MG/IPRATROPIUM 0.5 MG NEB (SCH) INH ONE ×2 (14:45)
[2017-04-23] MEDS ORDERED: AZITHROMYCIN 250 MG TAB PO ONE ×2 (14:45)
[2017-04-23] MEDS ORDERED: predniSONE 20 MG TAB PO ONE ×2 (14:45)
[2017-04-30] MEDS ORDERED: ALBUAER3 INH ×2 (16:59)
[2017-05-05] MEDS ORDERED: ALBUAER3 INH ×2 (18:38)
== END 2017-04-23 15:36 | disposition home or self-care (01) ==
LOC: NEPK 14:10
DX: J45.901 Unspecified asthma with (acute) exacerbation (principal)
CPT/HCPCS: 94664; 99284; J7512

== ENCOUNTER 2017-10-09 12:51 | Emergency (ER) | payer MEDICAID ==
[~2017-10-09] VITALS: Ht 154.9 cm; Wt 47.0 kg
[~2017-10-09 12:51] MED LIST changes: +AZIT500T2 PO; +FLUTI220I INH
[2017-10-09 12:58] VITALS: BP 115/63; PULSE 80; RESP 20; TEMP 99.5; O2SAT 99
[2017-10-09] MEDS ORDERED: PERM5CRE TOPICAL (15:02)
--- NOTE | 2017-10-09 15:06 | PD ---
HPI Chief Complaint: Skin Problem Time Seen by Provider: 14:56 Travel History International Travel<30 days: No Contact w/Intl Traveler<30days: No Traveled to known affect area: No History of Present Illness HPI 21-year-old female presents emergency department with 2 week history of worsening itchy rash. Patient states it started in her right axilla and has spread everywhere except her face. She states it is worse at night. She has a possible exposure to scabies by her ex-boyfriend several weeks ago. She has no other roommates currently. She denies fever, chills, or other symptoms. She has history of eczema but this is different. She is allergic to fish, grass, house dust, shellfish, and soy. PFSH Past Medical History ADHD: No Asthma: Yes (has been intubated) Autoimmune Disease: No Anxiety: Yes Depression: Yes Heart Rhythm Problems: No Cancer: No Cardiovascular Problems: No High Cholesterol: No Chest Pain: No Congestive Heart Failure: No Diabetes: No Diminished Hearing: No Endocrine: No Gastrointestinal Disorders: No Genitourinary: No Headaches: No Heparin Induced Thrombocytopen: No Hypertension: No Immune Disorder: No Implanted Vascular Access Dvce: No Musculoskeletal: No Neurologic: No Psychiatric: Yes (Depression) Reproductive: No Respiratory: Yes Integumentary: Yes (Eczema) Immunizations Current: Yes Migraines: No Seizures: No Thyroid Disease: No Ulcer: No ?: Not LMP: 10/03/17 : 0 Para: 0 Past Surgical History Appendectomy: No Section: No Cholecystectomy: No Other Surgery: No Social History Alcohol Use: No Tobacco Use: No Substance Use: No Allergies-Medications (Allergen,Severity, Reaction): Coded Allergies: Fish Containing Products (Verified Allergy, Severe, ASTHMA ATTACK, 10/09/17 ) grass pollen (Verified Allergy, Severe, ASTHMA ATTACK, 10/09/17) house dust (Verified Allergy, Severe, ASTHMA ATTACK, 10/09/17) shellfish derived (Verified Allergy, Severe, Anaphylaxis, 10/09/17) soy (Verified Allergy, Severe, FACIAL AND LIP SWELLING, DIFFICULTY SWALLOWING, 10/09/17) Reported Meds & Prescriptions Reported Meds & Active Scripts Active Permethrin Topical 5% (Permethrin) 5% Cream 1 Applic TOPICAL ONCE Proair Hfa 8.5 GM Inh (Albuterol Sulfate) 90 Mcg/Act Aer 2 Puff INH Q4-6H PRN 108 mcg/actuation Flovent Hfa 12 GM Inh (Fluticasone Propionate) 220 Mcg/Act Inh 1 Puff INH BID Use daily at the same time. Azithromycin 500 Mg Tab 500 Mg PO DAILY Ventolin Hfa 18 GM Inh (Albuterol Sulfate) 90 Mcg/Act Aer 2 Puff INH Q4-6H PRN Prednisone 20 Mg Tab 20 Mg PO BID 5 Days Tessalon Perles (Benzonatate) 100 Mg Cap 200 Mg PO TID PRN Symbicort Inh (Budesonide/Formoterol Fumarate) 160-4.5 Mcg/Act Aero 2 Puff INH Q12HR Prednisone 20 Mg Tab 20 Mg PO DIRECTED Take 40 MG twice a day x 3 days, then take 20mg twice a day x 3 days, then take 20mg once a day x 3 days, then stop. Levofloxacin 750 Mg Tablet 750 Mg PO DAILY Albuterol Neb (Albuterol Sulfate) 2.5 Mg/0.5 Ml Neb 2.5 Mg NEB Q4-6H PRN Note: The Albuterol Sulfate Inhalation Solution is concentrated and must be diluted. Read complete instructions carefully before using. Ventolin Hfa 18 GM Inh (Albuterol Sulfate) 90 Mcg/Act Aer 2 Puff INH Q4H PRN Review of Systems Except as stated in HPI: all other systems reviewed are Neg General / Constitutional: No: Fever Eyes: No: Visual changes HENT: No: Headaches Cardiovascular: No: Chest Pain or Discomfort Respiratory: No: Shortness of Breath Gastrointestinal: No: Abdominal Pain Genitourinary: No: Dysuria Musculoskeletal: No: Pain Skin: Positive Rash, Positive Itching Neurologic: No: Weakness Psychiatric: No: Depression Endocrine: No: Polydipsia Hematologic/Lymphatic: No: Easy Bruising Physical Exam Narrative GENERAL: Patient appears in no acute distress SKIN: Warm and dry. Normal color. Normal turgor. Patient has generalized dry rash consistent with scabies. No signs of cellulitis or abscess. HEAD: Atraumatic. Normocephalic. EYES: Pupils equal and round. No scleral icterus. No injection or drainage. ENT: No nasal bleeding or discharge. Mucous membranes pink and moist. Pharynx is clear. Airways patent NECK: Trachea midline. Supple. CARDIOVASCULAR: Regular rate and rhythm. RESPIRATORY: No accessory muscle use. Clear to auscultation. Breath sounds equal bilaterally. GASTROINTESTINAL: Abdomen soft, non-tender, nondistended. Hepatic and splenic margins not palpable. MUSCULOSKELETAL: Extremities without clubbing, cyanosis, or edema. No obvious deformities. NEUROLOGICAL: Awake and alert. No obvious cranial nerve deficits. Motor grossly within normal limits. Five out of 5 muscle strength in the arms and legs. Normal speech. PSYCHIATRIC: Appropriate mood and affect; insight and judgment normal. Data Data Last Documented VS Vital Signs Date Time Temp Pulse Resp B/P (MAP) Pulse Ox O2 Delivery O2 Flow Rate FiO2 10/09/17 12:58 99.5 80 20 115/63 (80) 99 MDM Medical Decision Making Medical Screen Exam Complete: Yes Emergency Medical Condition: Yes Differential Diagnosis Dermatitis. Eczema. Scabies. Narrative Course Patient is felt to have scabies. She is treated with permethrin 5% topical lotion as directed with 1 refill Scabies treatment information is given. Patient to follow-up if symptoms do not improve or worsen as needed Diagnosis Primary Impression: Scabies Patient Instructions: General Instructions, Scabies (ED) Scripts Permethrin Topical 5% (Permethrin Topical 5%) 5% Cream 1 APPLIC TOPICAL ONCE for Scabies, #1 TUBE 1 Refill Prov: Carlton Faust MD 10/09/17 Disposition: 01 DISCHARGE HOME Condition: Stable Cale Zamora Oct 09, 2017 15:06
== END 2017-10-09 15:24 | disposition home or self-care (01) ==
LOC: NEPD 12:51
DX: B86 Scabies (principal)
CPT/HCPCS: 99283